=== PATIENT | female | born 2000 | race Caucasian/White ===

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

== ENCOUNTER → 2021-01-06 13:41 | Outpatient (CLI) | payer MEDICAID, SELFPAY ==
[2020-12-28 11:52] VITALS: BMI 31.6
[2021-01-09 09:36] LABS: AFP MoM Value 1.44 (.); AFP Value-EIA 39.5 ng/mL (.); Comment Report (.); DIA MoM Value 1.33 (.); DIA Value-EIA 208.83 pg/mL (.); DSR (By Age) 1158 (.); DSR (Second Trimester) 10000 (.); Gestat. Age Based On As provided (.); Insulin Dep Diabetes No (.); Maternal Age At EDD 20.4 yr (.)
== END ==
PROVIDERS: PCP Pediatrics; Visit Provider Obstetrics & Gynecology
DX: Z34.82 Encounter for supervision of other normal pregnancy, second trimester (principal)
CPT/HCPCS: 36415; 82105; 82677; 84702

== ENCOUNTER → 2021-01-24 14:46 | Outpatient (CLI) | payer MEDICAID, SELFPAY ==
[2020-12-28 11:52] VITALS: BMI 31.6
== END ==
PROVIDERS: PCP Pediatrics; Visit Provider Obstetrics & Gynecology
DX: Z34.82 Encounter for supervision of other normal pregnancy, second trimester (principal)
CPT/HCPCS: 36415

== ENCOUNTER → 2021-03-13 13:04 | Outpatient (CLI) | payer MEDICAID, SELFPAY ==
[2021-03-13 14:35] LABS: Hematocrit 38.8 % (37-47); Hemoglobin 12.4 g/dL (12.0-15.0); Mean Corpuscular Volume 100.3 fL (81-99); Mean Platelet Vol. 10.2 fl (6.2-12.0); Platelet Count 368 K/mm3 (150-450); RBC Distribution Width CV 14.9 % (11.6-14.6); Red Blood Count 3.87 M/mm3 (4.2-5.4); White Blood Count 17.9 K/mm3 (4.4-11.0)
[2021-03-13 14:50] LABS: Glucose Challenge Gest 1H 50g 96 mg/dL (70-140)
== END ==
PROVIDERS: PCP Pediatrics; Visit Provider Obstetrics & Gynecology
DX: Z34.82 Encounter for supervision of other normal pregnancy, second trimester (principal)
CPT/HCPCS: 36415; 82950; 85027

== ENCOUNTER 2021-04-20 15:05 | Outpatient (CLI) | payer MEDICAID, SELFPAY ==
[2021-04-20 15:33] VITALS: BP 113/73; PULSE 95
[2021-04-20 15:34] VITALS: TEMP 37.5; O2SAT 99
[2021-04-20 15:46] VITALS: BMI 33.6
[2021-04-20 16:13] LABS: Color, Urine Yellow (Yellow); Glucose, Dipstick Normal (Normal); Ketone-Dipstick Negative (Negative); Leukocyte Esterase-Dipstick 100 /ul (Negative); Nitrite-Dipstick Negative (Negative); Occult Blood-Urine Negative /ul (Negative); Protein-Dipstick 30 mg/dl (Negative); Urine Bilirubin Dipstick Negative (Negative); Urine Clarity Clear (Clear); Urine Urobilinogen 1 mg/dl (Normal); Urine pH 6.5 (5.0 - 8.0)
[2021-04-20 16:23] LABS: ROM Internal Control Test YES-OK TO RESULT pt. (Internal QC); ROM Patient Test Negative (Negative)
--- NOTE | 2021-04-20 21:25 | OB.TRI.NOTE ---
HPI - General HPI Narrative MONA ALSTON, is a 21 F who presents leakage of fluid PFSH PFSH Home Medications [id number] acid [PreNata] 1 tab PO DAILY 12/19/20 [History Last Taken Unknown] Allergy/AdvReac Type Severity Reaction Status Date / Time No Known Allergies Allergy Verified 04/20/21 15:49 Social History Smoking Status: Never smoker NST FHR Rate Baby A Baseline: 120 Variability:: Moderate Accelerations:: 10 x 10 Decelerations:: None NST Reactive:: Yes Uterine Activity:: Quiet Assessment & Plan (1) : PLAN: Patient arrived with leakage of fluid. ROM negative. Ruled out rupture. Okay to discharge home and follow-up at scheduled appointment
== END 2021-04-20 16:45 | disposition home or self-care (01) ==
LOC: WPOUT 15:16 → WP 15:16
PROVIDERS: PCP Pediatrics; Visit Provider Obstetrics & Gynecology
DX: Z03.71 Encounter for suspected problem with amniotic cavity and membrane ruled out (principal)
CPT/HCPCS: 59025; 59050; 81002; 84112; 87086; 87088; 99218; G0378

== ENCOUNTER 2021-05-13 09:50 | Outpatient (CLI) | payer MEDICAID, SELFPAY ==
[2021-05-13 10:00] VITALS: BMI 35.0
[2021-05-13 10:06] VITALS: TEMP 36.7
[2021-05-13 10:07] VITALS: BP 114/72; PULSE 97
[2021-05-13 10:32] LABS: ROM Internal Control Test YES-OK TO RESULT pt. (Internal QC); ROM Patient Test Negative (Negative)
[2021-05-13 11:38] LABS: Color, Urine Yellow (Yellow); Glucose, Dipstick Normal (Normal); Ketone-Dipstick 15 mg/dl (Negative); Leukocyte Esterase-Dipstick 500 /ul (Negative); Nitrite-Dipstick Negative (Negative); Occult Blood-Urine Negative /ul (Negative); Protein-Dipstick 15 mg/dl (Negative); Urine Bilirubin Dipstick Negative (Negative); Urine Clarity Sl. Cloudy (Clear); Urine Urobilinogen Normal (Normal)
--- NOTE | 2021-05-13 17:00 | OB.TRI.NOTE ---
HPI - General HPI Narrative MONA ALSTON, is a 21 F who presents with c/o leaking of fluid at 33 4/7 wga (ROSALINA 06/27/2021). PFSH PFSH Home Medications [id number] acid [PreNata] 1 tab PO DAILY 12/19/20 [History Last Taken Unknown] Allergy/AdvReac Type Severity Reaction Status Date / Time No Known Allergies Allergy Verified 05/13/21 10:18 Social History Smoking Status: Never smoker NST FHR Rate Baby A Baseline: 140 Variability:: Moderate Accelerations:: 15 x 15 Decelerations:: None NST Reactive:: Yes FHR Category:: Category I Uterine Activity:: 07/31 Assessment & Plan (1) : QUALIFIERS: Weeks of gestation: 33 weeks Qualified Code(s): Z3A.33 - 33 weeks gestation of PLAN: False labor < 37wga SVE /-2 per RN exam ROM plus neg status reassuring d/c home
== END 2021-05-13 11:25 | disposition home or self-care (01) ==
LOC: WPOUT 09:51 → WP 09:52
PROVIDERS: PCP Pediatrics; Visit Provider Obstetrics & Gynecology
DX: O47.03 False labor before 37 completed weeks of gestation, third trimester (principal); Z3A.33 33 weeks gestation of pregnancy
CPT/HCPCS: 59025; 59050; 81002; 84112; 87086; 87088; 99218; G0378

== ENCOUNTER 2021-05-17 01:45 | Outpatient (CLI) | payer MEDICAID, SELFPAY ==
[2021-05-17 01:52] VITALS: BMI 35.7
[2021-05-17 02:01] VITALS: BP 109/65; PULSE 116; O2SAT 97
[2021-05-17 02:19] VITALS: TEMP 37.4
[2021-05-17 02:21] VITALS: PULSE 102
[2021-05-17 02:22] LABS: Color, Urine Straw (Yellow); Glucose, Dipstick Normal (Normal); Ketone-Dipstick Negative (Negative); Leukocyte Esterase-Dipstick 500 /ul (Negative); Mucous, Urine 0 SEEN /hpf (<or=2+); Nitrite-Dipstick Negative (Negative); Occult Blood-Urine Negative /ul (Negative); Protein-Dipstick Negative (Negative); Red Blood Cells-Urine 0 SEEN /hpf (0-5); Urine Bilirubin Dipstick Negative (Negative); Urine Clarity Clear (Clear); Urine Urobilinogen Normal (Normal)
[2021-05-17 02:31] LABS: Bacteria 1+ /hpf (None Seen); Squamous Epithelial Cells - UA 0-5 SEEN /hpf (5-10); White Blood Cells 5-10 SEEN /hpf (0-5)
[2021-05-17 04:05] VITALS: BP 101/72; PULSE 81; TEMP 36.6
--- NOTE | 2021-05-17 09:00 | OB.TRI.NOTE ---
HPI - General HPI Narrative MONA ALSTON, is a 21 F who presents at 34 1/7 weeks gestation (ROSALINA 06/27/20) with c/o contractions PFSH PFSH Home Medications [id number] acid [PreNata] 1 tab PO DAILY 12/19/20 [History Last Taken 05/15/21 08:00] Allergy/AdvReac Type Severity Reaction Status Date / Time No Known Allergies Allergy Verified 05/17/21 01:58 Social History Smoking Status: Never smoker NST FHR Rate Baby A Baseline: 135 Variability:: Moderate Accelerations:: 15 x 15 Decelerations:: None NST Reactive:: Yes FHR Category:: Category I Uterine Activity:: 10/28 Assessment & Plan (1) : QUALIFIERS: Weeks of gestation: 34 weeks Qualified Code(s): Z3A.34 - 34 weeks gestation of PLAN: False labor Contractions resolved with observation and SVE unchanged U/A suggests possible UTI, however, pt on abx for dental indication, however, cannot recall name, dose. Will f/u Ucx, pt to continue antibiotics as ordered by dentist in interim.
== END 2021-05-17 04:40 | disposition home or self-care (01) ==
LOC: WPOUT 01:49 → WP 01:49
PROVIDERS: PCP Pediatrics; Visit Provider Obstetrics & Gynecology
DX: O47.03 False labor before 37 completed weeks of gestation, third trimester (principal); Z3A.34 34 weeks gestation of pregnancy
CPT/HCPCS: 59025; 59050; 81001; 87086; 87088; 99218; G0378

== ENCOUNTER → 2021-06-06 | Outpatient (CLI) | payer MEDICAID, SELFPAY | END | disposition home or self-care (01) | LOC: LABSPEC 10:54 | PROVIDERS: PCP Pediatrics; Visit Provider Obstetrics & Gynecology | DX: Z36.85 Encounter for antenatal screening for Streptococcus B (principal) | CPT/HCPCS: 87081 ==

== ENCOUNTER 2021-06-11 00:10 | Outpatient (CLI) | payer MEDICAID, SELFPAY ==
[2021-06-11 00:44] VITALS: BP 127/87; PULSE 108
[2021-06-11 01:32] VITALS: BMI 35.0
[2021-06-11 02:39] VITALS: BP 118/86; PULSE 88; TEMP 36.1; O2SAT 97
[2021-06-11 04:13] VITALS: BP 121/74; PULSE 95; TEMP 36.1; O2SAT 97
[2021-06-11] MEDS: Lactated Ringers 1,000 ML 250 ML IV (06:05)
[2021-06-11] MEDS: Acetaminophen 500 MG Tablet 1000 MG PO (06:17)
--- NOTE | 2021-06-11 06:53 | PCM.PN.BLA ---
Progress Note 21-year-old G3, P0 at 37/5 weeks presenting with contractions. Patient was monitored overnight. She was 4 cm in the office and is now 4 to 5 cm. Patient given IV fluids and Tylenol for contraction discomfort. Contractions have decreased in intensity and spaced out during stay. heart rate: 120s/mod moira/+accel/no decel [place]: irregular Assessment/plan: 21-year-old G3, P0 at 37/5 weeks not in labor. Labor precautions reviewed. Discharge home.
[2021-06-11 07:49] VITALS: BP 120/79; PULSE 84; TEMP 36.6
== END 2021-06-11 07:59 | disposition home or self-care (01) ==
LOC: WPOUT 00:17 → WP 00:17
PROVIDERS: PCP Pediatrics; Visit Provider Student in an Organized Health Care Education/Training Program
DX: O62.9 Abnormality of forces of labor, unspecified (principal); Z3A.37 37 weeks gestation of pregnancy
CPT/HCPCS: 96360; 96361; 59025; 59050; 99218; J7120; G0378

== ENCOUNTER 2021-06-12 17:25 | Outpatient (CLI) | payer MEDICAID, SELFPAY ==
[2021-06-12 17:47] VITALS: BMI 35.2
[2021-06-12 17:57] VITALS: BP 128/74; PULSE 93; TEMP 36.4; O2SAT 97
[2021-06-12 19:50] VITALS: TEMP 36.7
[2021-06-12 19:51] VITALS: BP 134/81; PULSE 108
--- NOTE | 2021-06-12 21:00 | OB.TRI.NOTE ---
HPI - General HPI Narrative MONA ALSTON, is a 21 F who presents with contractions PFSH PFS Medical History (Updated 06/11/21 @ 02:26 by Cherie Page) Anxiety Depression Psychiatric disorder Home Medications [id number] acid [PreNata] 1 tab PO DAILY 12/19/20 [History Last Taken 05/15/21 08:00] Allergy/AdvReac Type Severity Reaction Status Date / Time No Known Allergies Allergy Verified 06/11/21 02:24 Social History Smoking Status: Never smoker History Elective abortions Hx Para 0 Spontaneous abortions Hx # Term Pregnancies Ectopic pregnancies Hx # Pregnancies Multiple births # of living children Physical Exam Const alert, oriented x3, no apparent distress, average body habitus, healthy appearing and well nourished HEENT moist oral mucous membranes Head and Scalp: normocephalic and atraumatic Face and Sinus: normal facial exam Eyes PERRL Neck full ROM Resp normal respiratory effort, no retractions and no use of accessory muscles GI normal to inspection, nondistended, normoactive bowel sounds Extremity normal to inspection, full ROM and no clubbing, cyanosis or edema Psych mental status grossly normal, affect normal, speech normal and activity/motor behavior normal NST FHR Rate Baby A Baseline: 130 Variability:: Moderate Accelerations:: 15 x 15 Decelerations:: None NST Reactive:: Yes Uterine Activity:: Every 2 to 10 minutes Assessment & Plan (1) : QUALIFIERS: Weeks of gestation: 34 weeks Qualified Code(s): Z3A.34 - 34 weeks gestation of PLAN: Seen and examined. No change from baseline cervical exam in over a week. Contractions palpate minimal to mild. All reassuring. Okay to discharge home with labor precautions. Follow-up at scheduled appointments
== END 2021-06-12 21:15 | disposition home or self-care (01) ==
LOC: WPOUT 17:43 → WP 17:43
PROVIDERS: PCP Pediatrics; Visit Provider Obstetrics & Gynecology
DX: O62.9 Abnormality of forces of labor, unspecified (principal); Z3A.34 34 weeks gestation of pregnancy
CPT/HCPCS: 59025; 59050; 99218; G0378

== ENCOUNTER 2021-06-16 14:35 | Outpatient (CLI) | payer MEDICAID, SELFPAY ==
[2021-06-16 14:50] VITALS: TEMP 37.4
[2021-06-16 14:54] VITALS: BP 115/77; PULSE 88
[2021-06-16 14:56] VITALS: BMI 35.1
[2021-06-16 15:42] LABS: ROM Internal Control Test YES-OK TO RESULT pt. (Internal QC); ROM Patient Test Negative (Negative)
[2021-06-16 17:05] VITALS: TEMP 36.7
[2021-06-16 17:07] VITALS: BP 119/77; PULSE 72
--- NOTE | 2021-06-16 18:10 | PCM.PN.BLA ---
Progress Note 21-year-old G1 at 38/3 presenting with contractions. Cervix unchanged from last week at 5 cm. Recheck at 2 hours 5 cm per RN. FHR 135/mod moira/+accel/no decel [place]: irregular q5-7 A/P: G1 at 38/3 weeks with contractions, not in labor. Patient's cervix has been unchanged for over 1 week. Discharge home with labor precautions. Likely in early labor. She has an appointment on 06/19.
== END 2021-06-16 18:14 | disposition home or self-care (01) ==
LOC: WPOUT 14:42 → WP 14:43
PROVIDERS: Student in an Organized Health Care Education/Training Program; PCP Pediatrics; Visit Provider Obstetrics & Gynecology
DX: O62.9 Abnormality of forces of labor, unspecified (principal); Z3A.38 38 weeks gestation of pregnancy
CPT/HCPCS: 59025; 59050; 84112; 99218; G0378

== ENCOUNTER 2021-06-22 13:47 | Outpatient (CLI) | payer MEDICAID, SELFPAY ==
[2021-06-22 13:53] VITALS: BMI 35.3
[2021-06-22 13:58] VITALS: TEMP 36.9; O2SAT 98
[2021-06-22 13:59] VITALS: BP 114/69
[2021-06-22 14:00] VITALS: PULSE 113; O2SAT 98
--- NOTE | 2021-06-26 07:46 | OB.TRI.NOTE ---
HPI - General HPI Narrative MONA ALSTON, is a 21 F who presents to labor at 39+ weeks gestation with some contractions. PFSH PFSH Medical History (Updated 06/26/21 @ 07:[address] Amado Espinoza MD) Anxiety Depression Psychiatric disorder Trauma Home Medications [id number] acid [PreNata] 1 tab PO DAILY 12/19/20 [History Last Taken 06/24/21 20:00] Allergy/AdvReac Type Severity Reaction Status Date / Time No Known Allergies Allergy Verified 06/16/21 14:54 Social History Smoking Status: Never smoker History Elective abortions Hx Para 0 Spontaneous abortions Hx # Term Pregnancies Ectopic pregnancies Hx # Pregnancies Multiple births # of living children NST FHR Rate Baby A NST Reactive:: Yes FHR Category:: Category I Assessment & Plan (1) False labor, antepartum: PLAN: 39+ week gestation with false labor. No change in cervix after monitoring for several hours. Reactive nonstress test. Patient discharged to home with routine instructions.
== END 2021-06-22 23:59 | disposition home or self-care (01) ==
LOC: WPOUT 13:48 → WP 13:53
PROVIDERS: PCP Pediatrics; Visit Provider Obstetrics & Gynecology
DX: O47.1 False labor at or after 37 completed weeks of gestation (principal); Z3A.39 39 weeks gestation of pregnancy
CPT/HCPCS: 59025; 59050 ×2; G0378 ×2; 99218

== ENCOUNTER 2021-06-25 17:48 | Inpatient (IN) | payer MEDICAID, SELFPAY ==
[2021-06-25] VITALS (26 sets, daily range): BP systolic 108–132; BP diastolic 60–80; PULSE 75–125; TEMP 36.8–37.6; O2SAT 96–100; BMI 35.1
[2021-06-25] MEDS: Lactated Ringers 1,000 ML 50 ML IV (18:43)
[2021-06-25] MEDS: Lactated Ringers 500 ML 999 ML IV (18:45)
[2021-06-25 18:48] LABS: Absolute Neutrophil Count 10.8 X10^3/uL (2.0-7.7); Basophil# 0.03 X10^3/uL; Basophil% 0.2 % (0-1); Eosinophil# 0.03 X10^3/uL; Eosinophils% 0.2 % (0-5); Hematocrit 35.3 % (37-47); Hemoglobin 11.2 g/dL (12.0-15.0); Lymphocyte % 14.1 % (19-41); Mean Corp Hgb Conc 31.7 g/dL (32-36); Mean Corpuscular Hgb 28.1 pg (27.0-32.0); Mean Corpuscular Volume 88.7 fL (81-99); Mean Platelet Vol. 10.4 fl (6.2-12.0); Monocyte# 1.25 X10^3/uL; Monocyte% 8.8 % (0-10); NRBC Flagged by Analyzer 0 % (0-5); Neutrophil % 76.3 % (47-70); Platelet Count 381 K/mm3 (150-450); RBC Distribution Width CV 13.1 % (11.6-14.6); RBC Distribution Width SD 42.5 fl (35.1-43.9); Red Blood Count 3.98 M/mm3 (4.2-5.4); White Blood Count 14.2 K/mm3 (4.4-11.0)
[2021-06-25] MEDS: fentaNYL-bupivacaine (epidural) 100 ML BAG EPIDURAL ×2 (19:22→23:29)
--- NOTE | 2021-06-25 22:29 | NURSING ---
Pt complains of burning and feeling like there's a UTI with urinary catheter in place. RN notes urine clear and yellow with no signs of infection. RN removed catheter at 2226 and pt reported feeling immediate relief after removal of urinary catheter. Pt now continues complaining of burning. RN will continue to monitor, reassess in two hours, and update provider.
[2021-06-25] MEDS: Acetaminophen 500 MG Tablet PO (22:57)
[2021-06-25] MEDS: Lactated Ringers 1,000 ML 200 ML IV (23:30)
[2021-06-26] VITALS (25 sets, daily range): BP systolic 93–121; BP diastolic 46–72; PULSE 71–99; RESP 14–18; TEMP 36.2–37.9; O2SAT 96–99
--- NOTE | 2021-06-26 02:26 | NURSING ---
Addendum entered by Jaylene Marte 06/26/21 02:28: sterile field maintained during procedure by this RN Original Note: pt bladder emptied from 0200 to 0202 via straight cath, 450mL of clear, yellow urinary output, pt tolerated procedure well
[2021-06-26] MEDS: Ondansetron 4 MG/2 ML Vial IV (03:30)
[2021-06-26] MEDS: Mag Hydrox/Al Hydrox/Simeth 30 ML UDC PO (03:35)
[2021-06-26] MEDS: Lactated Ringers 1,000 ML 200 ML IV (04:26)
[2021-06-26] MEDS: fentaNYL-bupivacaine (epidural) 100 ML BAG EPIDURAL (05:05)
[2021-06-26 06:35] LABS: Syphilis Antibodies Non-reactive
[2021-06-26] MEDS: Oxytocin 30 units/NS 500 ml 30 UNITS/500 ML IV.SOLN 334 UNITS IV (07:19)
--- NOTE | 2021-06-26 07:33 | HP.PCM_ITS ---
History and Physical Date of Admission: 06/26/21 ACOG ANTEPARTUM RECORD - HISTORY AND PHYSICAL (06/26/2021) Name: MONA ALSTON History of this : This is a 21 year old [id number] presents at 39 wks + 6 days gestation in active labor. OB Physician: ANNIKA MARIE MD 's Physician: UNDECIDED ...................................................................... : [birth year] Age: 21 Address: [address] [place] [address] Phone: (h) [phone] ([phone] Insurance Carrier: [employer] CLAIMS DEPT [id number] Emergency Contact: AMA SAWANT [phone] ...................................................................... Final ROSALINA: 06/27/21 By Ultrasound: 9 weeks 6 days PARITY: (G-Total Pregnancies P-Fullterm,Premature,Induced AB,Spont AB, Ectopics, Multiple,Living) ROSALINA CONFIRMATION: By LMP: 09/20/20 Final ROSALINA: 06/27/21 OB PROBLEM LIST: Anx/Depression/Psychosis/PTSD/Bipolar Previously on Prozac and seroquel now on no meds , enc WIC program classes Family hx of Asperger's FOB >50yo Hx of cutting Pt's uncle/aunt/cousin with Factor V Pt work up for APLS and Factor V negative Quad screen negative Two brother's with Down Syndrome Unsure about an epidural, office childbirth class encouraged UTI history ALLERGIES: No Known Drug Allergies MEDICATIONS: doxylamine succinate 25 mg tablet 1 PO QD 28 mg iron-800 mcg tablet daily promethazine 12.5 mg tablet 1 PO every four to six hours PRN Nausea pyridoxine (vitamin B6) 25 mg tablet 1 PO QD Zofran 4 mg tablet One tablet by mouth every 8 hrs as needed for nausea SOCIAL HISTORY: Smoking - Never Alcohol Use - denies drinking Diet - no special diet Lifestyle - single Exercise - minimal Employer - unemployed 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 Drug Use - denies use of street drugs Sexual Activity - single sexual partner Residence - lives with Place of - [place], [place] Spouse-Sig Other Name - Ama Sawant Spouse-Sig Other Occupation - [employer] Spouse-Sig Other Phone No - [phone] PRIOR DELIVERY HISTORY DEL DATE GEST LAB WT LB WT OZ TYPE ANES LABOR TX 01 May 10 12 0 0 0 Sab General No 05 Jose Maria 21 8 0 0 0 Sab None No ANTEPARTUM FLOW CHART VISIT GE RTC FU F F HI U U DATE WK MD WKS HT PN HR M SS BP ED WT HI GL D EF ST __ ____ ___ __ __ ___ __ __ __ ___ __ __ __ ___ __ May JMW 1 38 V + + 110/74 sl 198 - - 4+ 80 -1 17 May JM 1 37 V + + 104/76 0 194 1+ - 4 09 May JM 1 35 V + + O 128/80 0 194 tr - 3 03 May JM 1 35 V + + 130/82 0 195 tr - 18 Apr JM 2 32 V on + 100/74 0 195 tr - 02 May 20 JM 2 30 - + + 98/70 0 188 tr - Apr 17 JM 2 28 - + + 100/70 0 186 tr - 23 Mar 14 JM 4 24 - + + 114/78 0 183 - - 24 Feb 07 JM 4 20 - + + 102/68 0 177 tr ne Feb 05 JM 2 18 - + + 108/60 0 173 tr - 07 Dec 31 JM 4 13 - + 110/76 0 179 tr - 10 Nov 27 JM 4 9 - on 100/68 0 188 1+ ne ANTEPARTUM NOTE(S): Jun 19 2021: Questionable Fluid Leakage, Good FM, nit neg Jun 06 2021: GBS and LARC May 29 2021: see note May 23 2021: see note May 08 2021: doing well Apr 22 2021: no concerns expressed Apr 10 2021: doing well Mar 13 2021: u/s today Feb 11 2021: US today, glucola given for next apt. Jan 24 2021: Dec 25 2020: NOB visit completed Nov 28 2020: US today COMPREHENSIVE ANTEPARTUM NOTE(S): Jun 09 2021: H taken to OB. tkg Jun 06 2021: 37wk, GBS collected today. CE 3-4cm. JM May 29 2021: Mnoa is here today for PNV she is 35w6d. No edema. Positive movement. She believes she may be leaking fluid or urine, she is unsure. She also C/O pressure. BR May 29 2021: 35wk, cramping and leaking. SSE negtiave, ferning negative. CE 3 cm, unchanged from previous. GBS next visit. May 23 2021: Mona states she went to on Wednesday05/17/21 for contractions and back pain. She states Dr. Ayana Laboy said she may have a UTI but she was never told those results. Mona also states she was told by Dr. Ayana Laboy that she was 3cm dilated. She also C/O of increase of heartburn.Mona does continue to have irregular contractions and back pain. BR May 23 2021: 35wk, having contractions. Cervix 2-3 cm, unchanges from triage visit 1 week ago. GBS next visit. May 08 2021: Reviewed FM, PTL, SROM. Encouraged Tdap and Influenza today. LMT May 08 2021: 32wks, no complaints. JM Apr 22 2021: Mona is here for a PNV at 18/10. Good FM. No edema present. Denies concerns/ questions at this time. MK Apr 22 2021: 30wk, no complaints. JM Apr 10 2021: Mona is here for visit. Reviewed FM, PROM, PTL. Encouraged Influenza, Tdap vaccines. LMT Apr 10 2021: 28wks, 1hr GTT wnl. JM Mar 13 2021: 24wk, repeat u/s today for limited heart views now with full heart views wnl. 1hr GTT today. Still waiting on gender reveal with BB gun and balloon. Feb 11 2021: Mona is here with SO following US for PNV. 08/10. Glucola given with instructions for next apt. Having good FM. Feeling well and voices no concerns. No edema noted. Urine tr/neg. LSS Feb 11 2021: 20 weeks, anatomy ultrasound with limited cardiac in renal views. We will repeat ultrasound in 4 weeks. Otherwise within normal limits. For gender reveal via pickup truck, giant balloon, and BB gun. For 1 hour GTT next visit. Jan 24 2021: Yaz is her for 18 wks +0 day PNV. Reports she is doing well. She has some morning nausea, after eating crackers the nausea goes away. She continues to taking pre matt vitamins. Reports getting QURESHI a lot and takes 2 Tylenol which seen to help most of the time. States she is staying well hydrated. Reports yesterday she got a cat bite on left index finger and swelled up. Express interest in getti Jan 24 2021: 18 weeks, quad screen negative. Anatomy ultrasound next visit. Dec 25 2020: 13wk, still stable on no psych meds. For Quad and carrier at 15wks, ordered. Dec 25 2020: Mona is here for her NOB visit. She is a 20 year old A2 with an ROSALINA of 06/27/2021, current GA is 13 w 5 d. Her mother accompanies her today. She is and resides with her , Ama. She states that she has good support form Ama, and their families. Mona is excited about the . She states that she feels daily N/V, and takes Vitamin B6 and Zofran as prescribed; she s Nov 28 2020: Mona is here with SO following US for PNV. Having nausea in w aves through out day. Does vomit about twice a day. Discussed saltine at bedside and small frequent meals throughout day. Eating healthy and increase water intake. Excited about . Urine 1+/neg. LSS Nov 28 2020: 9wk, u/s today confirmed FINAL ROSALINA: 06/27/21 by LMP. PNP wnl. A pos. Pt with Anx/Depression/Psychosis/PTSD/Bipolar perviously on Prozac and Seroquel now on no meds stable. FOB >50yo. Pt desires Quad and carrier screening, will get at 15wks. ROSA REVIEW OF SYSTEMS: GENERAL - Denies fever, or chills SKIN - Denies rash, new skin lesions, or change in moles EYES - Denies blurred vision, or change in visual acuity EARS - Denies ear pain, or difficulty hearing NOSE - Denies nasal congestion, discharge, or bleeding MOUTH - Denies sore throat, or difficulty swallowing NECK - Denies pain or swelling RESPIRATORY - Denies shortness of breath, cough, wheezing CARDIOVASCULAR - Denies palpitations, chest pain, orthopnea, PND, peripheral edema, syncope or claudication GASTROINTESTINAL - Denies nausea, vomiting, diarrhea, constipation, Denies abdominal pain, melena and or bright red blood GENITOURINARY - Denies dysuria, frequency of urination, urgency, or hesitancy MUSCULOSKELETAL - Denies joint or muscle pain, or back pain NEUROLOGICAL - Denies localized numbness, weakness, or tingling PSYCHIATRIC - Denies depression, anxiety, substance abuse or suicide attempts ENDOCRINE - Denies heat or cold intolerance, weight loss or gain, increasing thirst HEMATO-IMMUNOLOGIC - Denies easy bruising, bleeding, oral ulcerations or recurrent infections GENETICS SCREENING: Age 35+ years: No Thalassemia: No Neural Tube Defect: No Down Syndrome: Yes, Brothers SETH-SACHS: No Sickle Cell Disease: No Hemophilia: No Musc. Dystrophy: No Cystic Fibrosis: No-declines screening Vasu Chorea: No Mental Retardation: No Fragile X: No Other genetic: No Other defects: No SABs/still births: No Drugs since LMP: No Comments: Hx of autism (brothers), Asperger's Syndrome INFECTION HISTORY: High risk AIDS: No High risk Hepatitis: No Exposed to TB: No Exposed to Herpes: No Rash/viral illness since LMP: No History of STD: No MENSTRUAL HISTORY: *Menses Amount/Duration: 3-4 DAYSMenses Regularity: RegularMenarche (Age Onset): 10* PAST SUMMARY: PARITY: 1. Total Pregnancies............ 3 2. Full Term Pregnancies........ 0 3. Premature.................... 0 4. Abortions - Induced.......... 0 5. Abortions - Spontaneous...... 2 6. Ectopics..................... 0 7. Multiple Births.............. 0 8. Living Children.............. 0 PAST #1: Date of :.................. 04/21/20 Gestation Weeks:................ 12 Length of labor(hours):......... 0 Sex:............................ Weight-lbs:............... 0 Weight-oz:................ 0 Type of Delivery:............... Sab Type of Anesthesia:............. General Place of Delivery:.............. [place] Treatment of Labor?:.... No Comment: PAST #2: Date of :.................. 06/25/20 Gestation Weeks:................ 8 Length of labor(hours):......... 0 Sex:............................ Weight-lbs:............... 0 Weight-oz:................ 0 Type of Delivery:............... Sab Type of Anesthesia:............. None Place of Delivery:.............. none Treatment of Labor?:.... No Comment: PHYSICAL EXAMINATION General Appearence: 21 yo female in no acute distress Vital Signs: AF, VSS Heart: RRR without rubs or gallops Lungs: CTA x 2 Breasts: deferred Abdomen: gravid Pelvis: Cervix: 6/80 gross rupture membranes Presentation: cephalic Station: -2 Fetus: Size: AGA Movement: present Heart: present LAB TEST(S) ORDERED SINCE:09/30/20 06/16/2021 (ROM) RUPTURE OF MEMBRANES 06/09/2021 RULE OUT BETA STREP (GRP. B) 05/18/2021 URINE CULTURE 05/17/2021 URINALYSIS, COMPLETE 05/14/2021 URINE CULTURE 05/13/2021 URINALYSIS, ROUTINE (DIPSTICK) 05/13/2021 (ROM) RUPTURE OF MEMBRANES 04/22/2021 URINE CULTURE 04/20/2021 URINALYSIS, ROUTINE (DIPSTICK) 04/20/2021 (ROM) RUPTURE OF MEMBRANES 03/13/2021 GLUCOSE CHALLENGE GEST 1H 50G 03/13/2021 CBC-COMPLETE BLOOD CNT NO DIFF 01/30/2021 MISCELLANEOUS LAB PROCEDURE 01/15/2021 MISCELLANEOUS LAB PROCEDURE 01/09/2021 AFP TETRA QUAD SCREEN 11/18/2020 CHLAMYDIA/GC LAUREN APTIMA 11/15/2020 URINE CULTURE 11/14/2020 RUBELLA IGG 11/14/2020 T AND S-NO CHARGE W/PNP 11/14/2020 L509.8000 11/14/2020 HIV - [facility] 11/14/2020 HEPATITIS C ANTIBODY 11/14/2020 HEPATITIS B SURFACE ANTIGEN 11/14/2020 CBC W/DIFF, AUTOMATED 06/26/2021 L509.8000 06/25/2021 TYPE AND SCREEN 06/25/2021 COVID 19 AG RAPID (RN COLLECT) 06/25/2021 CBC W/DIFF, AUTOMATED == ==== Order Observation Description Value Ref_Range A* Site == ==== CBC W/DIFF, AUT NOTE GONZALEZ CBC W/DIFF, AUT WBC 14.2 K/mm3 4.4-11.0 H ML CBC W/DIFF, AUT RBC 3.98 M/mm3 4.2-5.4 L ML CBC W/DIFF, AUT HGB 11.2 g/dL 12.0-15.0 L ML CBC W/DIFF, AUT HCT 35.3 37-47 L ML CBC W/DIFF, AUT MCV 88.7 fL 81-99 ML CBC W/DIFF, AUT MCH 28.1 pg 27.0-32.0 ML CBC W/DIFF, AUT MCHC 31.7 g/dL 32-36 L ML CBC W/DIFF, AUT RDW CV 13.1 11.6-14.6 ML CBC W/DIFF, AUT RDW SD 42.5 fl 35.1-43.9 ML CBC W/DIFF, AUT PLT 381 K/mm3 150-450 ML CBC W/DIFF, AUT MPV 10.4 fl 6.2-12.0 ML CBC W/DIFF, AUT NEUT% 76.3 47-70 H ML CBC W/DIFF, AUT LY% 14.1 19-41 L ML CBC W/DIFF, AUT MONO% 8.8 0-10 ML CBC W/DIFF, AUT EO% 0.2 0-5 ML CBC W/DIFF, AUT BASO% 0.2 0-1 ML CBC W/DIFF, AUT IG% 0.400 0.0-0.9 ML IG% - Immature Granulocytes (promyelocytes, myelocytes and metamyelocytes) > 1% indicates that a LEFT SHIFT is Present. CBC W/DIFF, AUT ABSOLUTE NEUT 10.8 X10 3/uL 2.0-7.7 H ML CBC W/DIFF, AUT ABSOLUTE LYMPH 2.00 X10 3/uL 0.83-4.51 ML CBC W/DIFF, AUT NUCLEATED RBC 0 0-5 ML L509.8000 NOTE GONZALEZ L509.8000 SYPHILIS ABS Non-reactive ML Labor [facility]~[address] [place], [address]~ TYPE AND SCRE AB SCREEN GEL NEGATIVE ML COVID 19 AG RAP NOTE GONZALEZ (ROM) RUPTURE O NOTE GONZALEZ (ROM) RUPTURE O ROM Negative Negative ML Amniotic fluid not present indicates No Rupture of Membranes at time of specimen collection. RULE OUT BETA S NOTE GONZALEZ URINE CULTURE NOTE GONZALEZ URINALYSIS, COM NOTE GONZALEZ URINALYSIS, COM WBC 5-10 SEEN /hpf 0-5 ML URINALYSIS, COM RBC 0 SEEN /hpf 0-5 ML URINALYSIS, COM EPI,SQUAMOUS 0-5 SEEN /hpf 5-10 ML URINALYSIS, COM BACTERIA 1+ /hpf None Seen ML URINALYSIS, COM MUCUS 0 SEEN /hpf <or=2+ ML URINE CULTURE NOTE GONZALEZ URINALYSIS, ROU NOTE GONZALEZ URINALYSIS, ROU COLOR Yellow Yellow ML URINALYSIS, ROU URINE CLARITY Sl. Cloudy Clear ML URINALYSIS, ROU GLUCOSE, UR Normal mg/dl Normal ML URINALYSIS, ROU BILIRUBIN URINE Negative mg/dL Negative ML URINALYSIS, ROU KETONE UR 15 mg/dl Negative A ML URINALYSIS, ROU SP.GR. DIPSTX 1.020 1.002-1.030 ML URINALYSIS, ROU PH UR 6.0 5.0 - 8.0 ML URINALYSIS, ROU PROT DIPSTX 15 mg/dl Negative A ML URINALYSIS, ROU UROBILI Normal mg/dl Normal ML URINALYSIS, ROU NITRITE Negative Negative ML URINALYSIS, ROU OCCULT BLOOD-UR Negative /ul Negative ML URINALYSIS, ROU LEUK ESTERASE 500 /ul Negative A ML (ROM) RUPTURE O NOTE GONZALEZ (ROM) RUPTURE O ROM Negative Negative ML Amniotic fluid not present indicates No Rupture of Membranes at time of specimen collection. URINE CULTURE NOTE GONZALEZ URINALYSIS, ROU NOTE GONZALEZ URINALYSIS, ROU COLOR Yellow Yellow ML URINALYSIS, ROU URINE CLARITY Clear Clear ML URINALYSIS, ROU GLUCOSE, UR Normal mg/dl Normal ML URINALYSIS, ROU BILIRUBIN URINE Negative mg/dL Negative ML URINALYSIS, ROU KETONE UR Negative mg/dl Negative ML URINALYSIS, ROU SP.GR. DIPSTX 1.020 1.002-1.030 ML URINALYSIS, ROU PH UR 6.5 5.0 - 8.0 ML URINALYSIS, ROU PROT DIPSTX 30 mg/dl Negative A ML URINALYSIS, ROU UROBILI 1 mg/dl Normal A ML URINALYSIS, ROU NITRITE Negative Negative ML URINALYSIS, ROU OCCULT BLOOD-UR Negative /ul Negative ML URINALYSIS, ROU LEUK ESTERASE 100 /ul Negative A ML (ROM) RUPTURE O NOTE GONZALEZ (ROM) RUPTURE O ROM Negative Negative ML Amniotic fluid not present indicates No Rupture of Membranes at time of specimen collection. GLUCOSE CHALLEN NOTE GONZALEZ GLUCOSE CHALLEN GLU GEST 50G 1H 96 mg/dL 70-140 ML CBC-COMPLETE BL NOTE GONZALEZ CBC-COMPLETE BL WBC 17.9 K/mm3 4.4-11.0 H ML CBC-COMPLETE BL RBC 3.87 M/mm3 4.2-5.4 L ML CBC-COMPLETE BL HGB 12.4 g/dL 12.0-15.0 ML CBC-COMPLETE BL HCT 38.8 37-47 ML CBC-COMPLETE BL MCV 100.3 fL 81-99 H ML CBC-COMPLETE BL MCH 32.0 pg 27.0-32.0 ML CBC-COMPLETE BL MCHC 32.0 g/dL 32-36 ML CBC-COMPLETE BL RDW CV 14.9 11.6-14.6 H ML CBC-COMPLETE BL RDW SD 55.0 fl 35.1-43.9 H ML CBC-COMPLETE BL PLT 368 K/mm3 150-450 ML CBC-COMPLETE BL MPV 10.2 fl 6.2-12.0 ML MISCELLANEOUS L NOTE GONZALEZ MISCELLANEOUS L MISC LAB TEST ML TEST RESULT LIMITS Thrombotic Risk Acquired Com-I Dilute Prothrombin Time(dPT) 33.8 sec 0.0-55.0 dPT Confirm Ratio 1.27 Ratio 0.00-1.40 Prothrombin Antibodies, IgG 5 G units 0-20 Anticardiolipin Ab,IgG,Qn <9 GPL U/mL 0-14 Negative: <15 Indeterminate: 15 - 20 Low-Med Positive: >20 - 80 High Positive: >80 Anticardiolipin Ab,IgM,Qn 9 MPL U/mL 0-12 Negative: <13 Indeterminate: 13 - 20 Low-Med Positive: >20 - 80 High Positive: >80 Anticardiolipin Ab,IgA,Qn <9 APL U/mL 0-11 Negative: <12 Indeterminate: 12 - 20 Low-Med Positive: >20 - 80 High Positive: >80 Beta-2 Glycoprotein I Ab, IgG <9 GPI IgG units 0-20 Please Note: The reference interval reflects a 3SD or 99th percentile interval, which is thought to represent a potentially clinically significant result in accordance with the International Consensus Statement on the classification criteria for definitive antiphospholipid syndrome (APS). J Thromb Haem 2006;4:295-306. Beta-2 Glycoprotein I Ab, IgA <9 GPI IgA units 0-25 Please Note: The reference interval reflects a 3SD or 99th percentile interval, which is thought to represent a potentially clinically significant result in accordance with the International Consensus Statement on the classification criteria for definitive antiphospholipid syndrome (APS). J Thromb Haem 2006;4:295-306. Beta-2 Glycoprotein I Ab, IgM <9 GPI IgM units 0-32 Please Note: The reference interval reflects a 3SD or 99th percentile interval, which is thought to represent a potentially clinically significant result in accordance with the International Consensus Statement on the classification criteria for definitive antiphospholipid syndrome (APS). J Thromb Haem 2006;4:295-306. Antiphosphatidylserine IgM <22 MPS IgM Please note reference interval change Antiphosphatidylserine IgA 1 APS IgA 0-20 Antiphosphatidylserine IgG 1 GPS IgG 0-11 Lupus Anticoagulant Reflex PTT-LA 29.4 sec 0.0-51.9 dRVVT 33.7 sec 0.0-47.0 Lupus Reflex Interpretation Comment: No lupus anticoagulant was detected. TESTING PERFORMED AT [facility]. ORIGINAL REPORT ON FILE IN LAB CONTAINS ADDITIONAL TEST SITE INFORMATION. MISCELLANEOUS L NOTE GONZALEZ MISCELLANEOUS L MISC LAB TEST ML Scanned image report available in EMR AFP TETRA QUAD NOTE GONZALEZ AFP TETRA QUAD TEST RESULTS: *Screen Negative* . [facility] AFP TETRA QUAD GESTATIONAL AGE 15.0 WEEKS . [facility] AFP TETRA QUAD GEST AGE FROM As provided . [facility] AFP TETRA QUAD MATRNL [age]ROSALINA [age] . [facility] AFP TETRA QUAD RACE Other . [facility] AFP TETRA QUAD WEIGHT 174 lbs . [facility] AFP TETRA QUAD INS DEP DIABETE No . [facility] AFP TETRA QUAD MULT GESTATION No . [facility] AFP TETRA QUAD AFP VALUE-EIA 39.5 ng/mL . [facility] AFP TETRA QUAD AFP MOM VALUE 1.44 . [facility] AFP TETRA QUAD HCG VALUE 35023 mIU/mL . [facility] AFP TETRA QUAD HCG MOM 1.60 . [facility] AFP TETRA QUAD UE3 VALUE 1.15 ng/mL . [facility] AFP TETRA QUAD UE3 MOM 1.57 . [facility] AFP TETRA QUAD CHUCK VALUE-EIA 208.83 pg/mL . [facility] AFP TETRA QUAD CHUCK MOM VALUE 1.33 . [facility] AFP TETRA QUAD OSBR RISK 1 IN 3220 . [facility] AFP TETRA QUAD DSR 2ND TRI 1IN 16101 . [facility] AFP TETRA QUAD DSR (BY AGE)1IN 1158 . [facility] AFP TETRA QUAD T18 RISK Not increased . [facility] AFP TETRA QUAD T18 (BY AGE) 1:4511 . [facility] AFP TETRA QUAD INTERPRETATION Comment . [facility] Interpretation: Screen Negative This result is screen negative for OSB, Down Syndrome and Trisomy 18. The AFP MoM and patient specific risks calculated are based on the gestational age and the clinical information provided. This test can identify up to 80% of open neural tube defects. Closed neural tube defects and some open defects may not be detected by this test. The combination of maternal age, AFP, hCG, uE3, and CHUCK identifies 75-80% of Down Syndrome. The combination of maternal age, AFP, hCG and uE3 identifies 60% of Trisomy 18 pregnancies. The [employer] recommends amniocentesis be offered to women age 35 and older. Recalculations are not recommended when gestational dating by LMP and ultrasound are within 10 days. URINE CULTURE NOTE GONZALEZ PN N [facility]~[address] [place], [address]~ T AND AB SCREEN GEL NEGATIVE ML HEPATITIS C ANT NOTE GONZALEZ HEPATITIS C ANT HEPATITIS C AB Non-Reactive Nonreactive ML Non Reactive: < 0.8 Equivocal: >/= 0.8 to < 1.0 Reactive: >/= 1.0 The CDC recommends that a reactive/equivocal HCV antibody result be followed up by the HCV Nucleic Acid Amplification test (807728) HEPATITIS B JENNIFER NOTE GONZALEZ HEPATITIS B JENNIFER HEP B SURF AG Non-Reactive Nonreactive ML HIV - [facility] NOTE GONZALEZ HIV - [facility] HIV Non-Reactive Nonreactive ML L509.8000 NOTE GONZALEZ L509.8000 SYPHILIS ABS Non-reactive ML RUBELLA IGG NOTE GONZALEZ RUBELLA IGG RUBELLA IGG Equiv Nonreactive ML Antibody Results Interpretation of Immune Status Non Reactive Presumed Non-Immune Equivocal Equivocal Reactive Presumed Immune CBC W/DIFF, AUT NOTE GONZALEZ CBC W/DIFF, AUT WBC 11.5 K/mm3 4.4-11.0 H ML CBC W/DIFF, AUT RBC 4.45 M/mm3 4.2-5.4 ML CBC W/DIFF, AUT HGB 13.6 g/dL 12.0-15.0 ML CBC W/DIFF, AUT HCT 42.5 37-47 ML CBC W/DIFF, AUT MCV 95.5 fL 81-99 ML CBC W/DIFF, AUT MCH 30.6 pg 27.0-32.0 ML CBC W/DIFF, AUT MCHC 32.0 g/dL 32-36 ML CBC W/DIFF, AUT RDW CV 13.8 11.6-14.6 ML CBC W/DIFF, AUT RDW SD 48.8 fl 35.1-43.9 H ML CBC W/DIFF, AUT PLT 350 K/mm3 150-450 ML CBC W/DIFF, AUT MPV 10.1 fl 6.2-12.0 ML CBC W/DIFF, AUT NEUT% 73.0 47-70 H ML CBC W/DIFF, AUT LY% 18.3 19-41 L ML CBC W/DIFF, AUT MONO% 7.6 0-10 ML CBC W/DIFF, AUT EO% 0.4 0-5 ML CBC W/DIFF, AUT BASO% 0.4 0-1 ML CBC W/DIFF, AUT IG% 0.300 0.0-0.9 ML IG% - Immature Granulocytes (promyelocytes, myelocytes and metamyelocytes) > 1% indicates that a LEFT SHIFT is Present. CBC W/DIFF, AUT ABSOLUTE NEUT 8.4 X10 3/uL 2.0-7.7 H ML CBC W/DIFF, AUT ABSOLUTE LYMPH 2.10 X10 3/uL 0.83-4.51 ML CBC W/DIFF, AUT NUCLEATED RBC 0 0-5 ML CHLAMYDIA/GC NA NOTE GONZALEZ CHLAMYDIA/GC NA CHLAMY,NUC ACID Negative Negative [facility] CHLAMYDIA/GC NA GC BY NUC ACID Negative Negative LCI Performed at: = - [facility], [place] [id number] [employer] Ironer: Shelli Robins MD, Phone: [phone] A POSITIVE *Negative results from patients with symptom onset beyond five days should be treated as presumptive and confirmed by a molecular assay if clinically necessary. Negative results should not be used as the sole basis for treatment or for patient management. COVID 19 AG RAPID (RN COLLECT) *Positive results do not differentiate between SARS-CoV and SARS-CoV-2. If differentation of the specific SARS virus is desired an additional sample and an additional order is required. COVID 19 AG RAPID (RN COLLECT) * This test has not been FDA cleared or approved; the test has been authorized by FDA under an Emergency Use Authorization (EAU) for use by laboratories certified under CLIA that meet the requirements to perform moderate, high, or waived complexity tests. COVID 19 AG RAPID (RN COLLECT) Normal Reference Range: Negative SARS-CoV-2 (COVID 19) Negative RAPID METHOD Quidel Dorothea Analyzer SUKI Group B Beta Streptococcus is not isolated. Mixed Gram Positive Organisms Jackson Count 50,000-80,000 MIXC Mixed contaminants. Submit a new specimen if indicated. Mixed Gram Positive Organisms Jackson Count <FONT COLOR=#[id number] MIXC Mixed contaminants. Submit a new specimen if indicated. Mixed Gram Positive Organisms Jackson Count 25,000-50,000 MIXC Mixed contaminants. Submit a new specimen if indicated. Mixed Gram Positive Organisms Jackson Count 50,000-80,000 MIXC Mixed contaminants. Submit a new specimen if indicated. A POSITIVE == ==== Impression /Plan: 39 wks + 6 days intrauterine in active labor. Preparations in progress for delivery.
--- NOTE | 2021-06-26 07:34 | EX.PCM.OBRPT ---
Maternal Data Information Final ROSALINA: 06/27/21 Gestational age: 39 weeks 6 days Vaginal Delivery Maternal Presentation Maternal Presentation: Spontaneous Rupture of Membranes Operative Information Date of Procedure: 06/26/21 Pre-Operative Diagnosis: IUP Post-Operative Diagnosis: IUP Surgery / Procedure Performed: Spontaneous Vaginal Delivery Type of Anesthesia: Epidural Estimated Blood Loss: 250 cc Findings Description of Procedure: Spontaneous vaginal delivery of a viable female infant with Apgars of 8/9 from an occiput anterior presentation with clear amniotic fluid and normal three-vessel placenta. No episiotomy. First-degree midline laceration repaired with 3-0 Rapide suture under epidural and local anesthesia. Kiwi vacuum used x1 pull from low outlet to assist with delivery of the head due to increasing maternal fatigue after 3-1/2 to 4 hours of pushing. Sponges okay. Delivery physician: Amado Espinoza MD. Presentation: Vertex Amniotic Membrane Rupture Type: Spontaneous Amniotic Fluid Description: Clear Placental Delivery Description: Spontaneous Placenta Disposition: [facility] Cord Vessel Description: 3 Vessels Cord Entanglement: None Infant A Gender: Female (1 minute): 8 (5 minute): 9 Post Vaginal Delivery Medications Given After Delivery: IV Pitocin Episiotomy Description: None Laceration: Midline and 1st degree Complication Complications: None
[2021-06-26] MEDS: Acetaminophen 500 MG Tablet 1000 MG PO ×2 (08:11→14:38)
[2021-06-26] MEDS: Ibuprofen 600 MG Tablet PO ×2 (08:43→14:37)
[2021-06-26] MEDS: Etonogestrel 68 MG IMPLANT SC (18:56)
--- NOTE | 2021-06-26 19:12 | PCM.PN.BLA ---
Progress Note Patient seen and examined. Desires Nexplanon device. Discussed risk benefits alternatives of Nexplanon device, explained insertion procedure. Patient state understanding and wished to proceed. All questions were answered and consent was signed. Nexplanon device was placed in left arm with 3 cc 1% lidocaine.
[2021-06-27 01:09] VITALS: BP 108/58; PULSE 83; RESP 18; TEMP 36.6
[2021-06-27] MEDS: Acetaminophen 500 MG Tablet 1000 MG PO ×2 (01:15→12:41)
[2021-06-27 04:46] VITALS: BP 107/64; PULSE 80; RESP 18
--- NOTE | 2021-06-27 06:38 | PN.OBGYN_ITS ---
Subjective Subjective Overall no complaints Objective Data Objective Data Vital Signs: Vital Signs Temp Pulse Resp BP Pulse Ox 98 F 80 18 107/64 98 06/27/21 01:09 06/27/21 04:46 06/27/21 04:46 06/27/21 04:46 06/26/21 15:41 Oxygen Delivery Method Room Air Weight: 198 lb 6.656 oz Body Mass Index (BMI) 35.1 Intake & Output: Intake and Output for Last 24 Hours 06/25/21 06/26/21 06/27/21 23:59 23:59 23:59 Intake Total 1396.67 / 1396.67 2033.34 / 2033.34 Output Total 450 / 450 450 / 450 Balance 946.67 / 946.67 1583.34 / 1583.34 Lab / Micro Data Result Diagrams: 06/25/21 18:30 Micro: Microbiology 06/25/21 18:00 Nasal Secretion SARS-CoV-2 Antigen (Rapid) - Final Physical Exam Const alert, oriented x3, no apparent distress, average body habitus, healthy appearing and well nourished HEENT normocephalic and moist oral mucous membranes Head and Scalp: atraumatic Face and Sinus: normal facial exam Neck full ROM Resp normal respiratory effort, no retractions and no use of accessory muscles GI normal to inspection, nondistended, normoactive bowel sounds GI Narrative: Uterus firm and below umbilicus Extremity normal to inspection, full ROM and no clubbing, cyanosis or edema Psych mental status grossly normal, affect normal, speech normal and activity/motor b ehavior normal Assessment & Plan (1) Vaginal delivery: PLAN: day 1 status post vacuum-assisted vaginal delivery for failure to progress. Breast-feeding. Overall pain well controlled. Likely home tomorrow
[2021-06-27] MEDS: Ibuprofen 600 MG Tablet PO ×2 (06:51→18:21)
[2021-06-27 09:30] VITALS: BP 103/60; PULSE 88; RESP 16; TEMP 36.3
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
[2021-06-27 14:00] VITALS: BP 111/63; PULSE 92; RESP 16; TEMP 36.6
--- NOTE | 2021-06-27 17:00 | CASEMGMT ---
Social Work Labor and Delivery Unit Called [facility] and spoke with Radha Back in the intake department, , extension [phone]. Referral given due to dependency concerns regarding the father baby's status as a registered sex offender and the other baby is not mental health history which is currently untreated. Reported noted concern also regarding some safe sleep issues with the parents. Updated that MOB has agreed to help me grow referral, as well as likely discharge this weekend. Katie Major, form worker from [facility] to unit to meet with the MOB and FOB present. This automatic typewriter inspector presented to the MOB'S room to update, and family MOB alone in the room holding the baby. MOB appeared relaxed holding the baby. MOB agreeable to talk to children services. Children services aware of discharge timeframe for this family. Presented back to the MOB room to provide [facility] resource list, list of mental health agencies and providers, and a packet on mood and anxiety disorders. MOB reports the meeting with children services went well and the plan is to make a home visit next week. MOB expressed appreciation for resources provided, telling this automatic typewriter inspector thank you for helping. MOB's mother was in room holding the baby, and expressed encouragement to be MOB to speak up should MOB need any help upon home-going. FOB was sleeping on the couch. MOB continues to be agreeable to help me grow referral. Plan: MOB and infant will discharge home when medically ready. [facility] will follow in the community. Will be making a help me grow referral for additional community support and parent support. At this time MOB excepted mental health information only, rather than actual referral. -VICTOR M Banegas, SHIP'S OFFICER *This note was generated with [employer] software. It may contain incorrect words, spelling, and punctuation that were not noted in review of the chart prior to signing*
[2021-06-27 20:47] VITALS: BP 111/61; PULSE 79; RESP 18; TEMP 36.4
[2021-06-28 01:06] VITALS: BP 117/71; PULSE 90; RESP 18
[2021-06-28] MEDS: Ibuprofen 600 MG Tablet PO ×2 (01:08→08:17)
[2021-06-28 08:19] VITALS: BP 99/58; PULSE 69; RESP 20; TEMP 36.8
--- NOTE | 2021-06-28 10:00 | PCM.DC ---
Discharge Instructions Diet Discharge Diet: No restrictions Activity Discharge Activity: Return to Normal Activity, May Drive and May Shower May resume sexual activity in: 4-6 weeks Weight Bearing Status: Weight bearing as tolerated Dressing / Incision Call your doctor if your incision/area has: Continuous Slow Oozing and Foul Smelling Discharge Call your doctor if you observe: Fever of 101 or Higher, Shortness of breath and Chest pain Follow Up Care Please Follow Up With: Wai Major MD When: 2-week telehealth, 4 to 6 weeks Test Results: Test results from this visit will be discussed in further detail at your follow-up appointment, if applicable. Discharge Plan Admission Admit Date/Time: 06/25/21 17:48 Attending Provider: Amado Espinoza Primary Care Provider: Leydi Major Discharge Orders/Prescriptions Prescriptions: No Action PreNata 29 mg iron- 1 mg Tablet,Chewable 1 tab PO DAILY RF: 0 Disposition Discharge Orders: Discharge Patient (Routine); Ordered 06/28/21 Ordered By: Dr. Wai Major
--- NOTE | 2021-06-28 10:00 | PCM.PN.OB ---
Subjective Subjective No overnight complaints. Pain well controlled. Objective Data Objective Data Vital Signs: Vital Signs Temp Pulse Resp BP Pulse Ox 98.3 F 69 20 H 99/58 L 98 06/28/21 08:19 06/28/21 08:19 06/28/21 08:19 06/28/21 08:19 06/26/21 15:41 Oxygen Delivery Method Room Air Weight: 198 lb 6.656 oz Body Mass Index (BMI) 35.1 Intake & Output: Intake and Output for Last 24 Hours 06/26/21 06/27/21 06/28/21 23:59 23:59 23:59 Intake Total 2033.34 / 2033.34 Output Total 450 / 450 Balance 1583.34 / 1583.34 Lab / Micro Data Result Diagrams: 06/25/21 18:30 Micro: Microbiology 06/25/21 18:00 Nasal Secretion SARS-CoV-2 Antigen (Rapid) - Final Physical Exam Const alert, oriented x3, no apparent distress, average body habitus, healthy appearing and well nourished HEENT normocephalic and moist oral mucous membranes Head and Scalp: atraumatic Face and Sinus: normal facial exam Neck full ROM Resp normal respiratory effort, no retractions and no use of accessory muscles GI GI Narrative: Soft, nontender, uterus firm and below umbilicus Extremity normal to inspection, full ROM and no clubbing, cyanosis or edema Psych mental status grossly normal, affect normal, speech normal and activity/motor behavior normal Assessment & Plan (1) Vaginal delivery: PLAN: day 2. Breast-feeding. Pain well controlled. Okay to discharge home today
--- NOTE | 2021-06-28 10:03 | PCM.DC.BLA ---
Discharge Summary Date of Admission: 06/25/21 Date of Discharge: 06/28/21 Summary: Patient arrived on 06/25/2021 in labor. Subsequently had vacuum-assisted vaginal delivery for maternal exhaustion on 06/26/2021. recovery standard. Discharge home on 06/28/2021 Physical Exam Const alert, oriented x3 and no apparent distress HEENT normocephalic Eyes PERRL Resp normal respiratory effort, normal air movement, no retractions and no use of accessory muscles GI GI Narrative: Soft, nontender, uterus firm and below umbilicus Extremity normal to inspection Psych mental status grossly normal, thought process normal, cooperative, affect normal and speech normal Meaningful Use Info Meaningful Use Diagnoses (Choose all that apply): None applicable Discharge Plan Admission Admit Date/Time: 06/25/21 17:48 Primary Reason for Your Visit: Labor Attending Provider: Amado Espinoza Primary Care Provider: Leydi Major Instructions Additional Instructions / Restrictions: Regular diet, weightbearing as tolerated. Can shower, no intercourse for 4 to 6 weeks. Call if chest pain, shortness of breath, fever, increased bleeding. Follow-up 2-week telehealth, 4 to 6 weeks Discharge Orders/Prescriptions Prescriptions: No Action PreNata 29 mg iron- 1 mg Tablet,Chewable 1 tab PO DAILY RF: 0 Referrals / Follow Up: Leydi Major MD [Primary Care Provider] - Disposition Disposition (needs filled in before D/C Order can be placed): Home, Self Care
--- NOTE | 2021-07-01 09:34 | CASEMGMT ---
Social Work Labor and Delivery Unit Help Me Grow referral made via the [facility] Secure Web based referral system. No other services requested or indicated. Children services is following this family in the community. -CHANI Banegas, MECHANICAL CAD DESIGNER
== END 2021-06-28 12:25 | disposition home or self-care (01) | DRG 560 ==
LOC: WPOUT 17:56 → WP 17:56
PROVIDERS: Admitting Provider Obstetrics & Gynecology; PCP Pediatrics; Referring Provider Obstetrics & Gynecology; Visit Provider Obstetrics & Gynecology
DX: O75.81 Maternal exhaustion complicating labor and delivery (principal); Z37.0 Single live birth; Z23 Encounter for immunization; O70.0 First degree perineal laceration during delivery; Z3A.39 39 weeks gestation of pregnancy
CPT/HCPCS: 59025; 59050; 85025; 86780; 86850; 86900; 86901; 87426; 99218; J7120; G0378; J2405

== ENCOUNTER 2021-07-09 07:09 | Emergency (ER) | payer MEDICAID, SELFPAY ==
[2021-07-09 07:11] VITALS: BP 121/74; PULSE 75; RESP 14; TEMP 36.8; O2SAT 97; BMI 32.6
[2021-07-09 08:11] LABS: Anion Gap 8 (5-15); BUN 9 mg/dL (7-18); BUN/Creat Ratio 11.2 RATIO (10-20); Calcium,Total 9.1 mg/dL (8.5-10.1); Chloride 111 mmol/L (98-107); EST Glomerular Filtration Rate 96 mL/min (>60); Est Glom Filt Rate - Afr Amer 116 mL/min (>60); Estimated Creatinine Clearance 92.79 ml/min; Glucose 84 mg/dL (74-106); Potassium 3.6 mmol/L (3.5-5.1); Sodium Level 142 mmol/L (136-145)
--- NOTE | 2021-07-09 08:13 | EDS_ITS ---
HPI HPI - Female History of Present Illness Chief Complaint: Vag Bleeding Narrative Narrative: 21-year-old female presenting with vaginal bleeding. She gave on 06/26/2021 and had a midline tear which was sutured. She states that she had noted some spotting intermittently and she has been wearing diaper. Over the last days she is seeing more blood in the diaper. She does admit to having clots. She does state that she had some vague right-sided pain in her lower abdomen. She describes this as a mild ache. Patient has not had nausea or vomiting. She is breast-feeding. Denies urinary complaints. She is not lightheaded or dizzy. [facility] Medical History Anxiety Depression Psychiatric disorder Trauma Home Medications [id number] acid [PreNata] 1 tab PO DAILY 12/19/20 [History Last Taken 06/24/21 20:00] Allergy/AdvReac Type Severity Reaction Status Date / Time latex AdvReac Other Verified 07/09/21 07:10 Social History Smoking Status: Never smoker ROS ROS ED Constitutional Constitutional ED: Denies chills or fever(s) Eyes Eyes: Denies blurry vision or diplopia ENT ENT ED: Denies rhinorrhea or sore throat Cardiovascular Cardiovascular: Denies chest pain or palpitations Respiratory/Chest Respiratory/Chest: Denies cough, dyspnea or stridor Gastrointestinal Gastrointestinal: Reports abdominal pain; Denies diarrhea, nausea or vomiting Genitourinary Genitourinary ED: Reports other Details: Vaginal bleeding Musculoskeletal Musculoskeletal: Denies myalgias Integumentary Denies abscess or rash Neurologic Neurologic: Denies headache(s) or weakness Psychiatric Psychiatric: Denies anxiety or depression EXAM Physical Exam Const Vital Signs: 07/09/21 07:11 Temperature 98.2 F Temperature Source Temporal Pulse Rate 75 Respiratory Rate 14 Blood Pressure 121/74 H Blood Pressure Mean 89 Pulse Ox 97 Oxygen Delivery Method Room Air Positive well nourished General Appearance ED: NAD; Negative for pallor HEENT Reports moist mucous membranes Negative for trauma Eyes PERRL and EOMs intact bilaterally General Eye ED: Negative for pale conjunctiva or scleral icterus Neck no lymphadenopathy and supple Resp normal respiratory effort and clear to auscultation bilaterally Cardio regular rate and regular rhythm GI soft to palpation and non-distended GI Narrative: Mild right-sided tenderness of the abdomen above the level of the umbilicus on the right. Abdomen nonperitoneal. No CVA tenderness. Auscultation: normoactive bowel sounds Narrative: Visualization externally of the introitus shows there is no hemorrhaging. There is some brown blood in the vaginal vault. External Female Exam: normal appearance of the urethra; Negative for external swelling or external laceration Neuro oriented x3 Sensorium / Orientation: alert Psych mental status grossly normal Skin General Skin Exam: Negative for jaundice or pallor MDM MDM MDM Narrative Medical decision making narrative: Obtained basic labs and her CBC shows no leukocytosis. Her hemoglobin is 10 and it was 11.2 predelivery on the fifth. BMP unremarkable. Patient was discussed with Dr. Espinoza and he stated that if she is breast-feeding she can have abnormalities of bleeding for up to 2 years. He did not recommend ultrasound. I did tell him about her vague right-sided pain. I did offer to give her medicine to treat her pain and she states that she does not need anything. Given that her blood work is not showing any sign of infection, dehydration, kidney injury I will send her home and have her follow-up with her OB. Impression: 1. Abdominal pain 2. bleed Lab Data Attestation: I reviewed the patient's lab results. Labs: Laboratory Results - last 24 hr 07/09/21 07/09/21 07:45 07:45 WBC 6.7 RBC 3.66 L Hgb 10.0 L Hct 33.6 L MCV 91.8 MCH 27.3 MCHC 29.8 L RDW Std Deviation 46.1 H RDW Coeff of [place] 13.8 Plt Count 546 H MPV 8.9 Immature Gran % (Auto) 0.300 Neut % (Auto) 58.1 Lymph % (Auto) 31.2 [place] % (Auto) 6.9 Eos % (Auto) 3.1 Baso % (Auto) 0.4 Absolute Neuts (auto) 3.9 Absolute Lymphs (auto) 2.09 Nucleated RBC % 0 Sodium 142 Potassium 3.6 Chloride 111 H Carbon Dioxide 23.0 Anion Gap 8 BUN 9 Creatinine 0.80 Estim Creat Clear Calc 92.79 Est GFR (MDRD) Af Amer 116 Est GFR (MDRD) Non-Af 96 BUN/Creatinine Ratio 11.2 Glucose 84 Calcium 9.1 Discharge Plan Triage Chief Complaint: Vag Bleeding ED Provider: Cruz Paulino Dx/Rx/DC Orders Prescriptions: No Action PreNata 29 mg iron- 1 mg Tablet,Chewable 1 tab PO DAILY RF: 0 Primary Care Provider: Leydi Major
[2021-07-09 08:24] LABS: Absolute Lymphocyte Count 2.09 X10^3/uL (0.83-4.51); Absolute Neutrophil Count 3.9 X10^3/uL (2.0-7.7); Basophil# 0.03 X10^3/uL; Basophil% 0.4 % (0-1); Eosinophil# 0.21 X10^3/uL; Eosinophils% 3.1 % (0-5); Hematocrit 33.6 % (37-47); Lymphocyte # 2.09 X10^3/ul (0.83-4.51); Lymphocyte % 31.2 % (19-41); Mean Corp Hgb Conc 29.8 g/dL (32-36); Mean Corpuscular Hgb 27.3 pg (27.0-32.0); Mean Corpuscular Volume 91.8 fL (81-99); Mean Platelet Vol. 8.9 fl (6.2-12.0); Monocyte# 0.46 X10^3/uL; Monocyte% 6.9 % (0-10); NRBC Flagged by Analyzer 0 % (0-5); Neutrophil # 3.88 X10^3/uL (2.7-7.7); Neutrophil % 58.1 % (47-70); Platelet Count 546 K/mm3 (150-450); RBC Distribution Width CV 13.8 % (11.6-14.6); RBC Distribution Width SD 46.1 fl (35.1-43.9); Red Blood Count 3.66 M/mm3 (4.2-5.4); White Blood Count 6.7 K/mm3 (4.4-11.0)
[2021-07-09 08:59] VITALS: BP 113/67; PULSE 57; RESP 16; O2SAT 99
== END 2021-07-09 09:00 | disposition home or self-care (01) ==
PROVIDERS: Emergency Provider Student in an Organized Health Care Education/Training Program; PCP Pediatrics; Visit Provider Student in an Organized Health Care Education/Training Program
DX: N93.9 Abnormal uterine and vaginal bleeding, unspecified (principal); R10.31 Right lower quadrant pain
CPT/HCPCS: 80048; 85025; 99283; A4216

== ENCOUNTER 2021-08-04 12:34 | Emergency (ER) | payer MEDICAID, SELFPAY ==
[2021-08-04 12:35] VITALS: BP 119/75; PULSE 103; RESP 18; TEMP 36.6; O2SAT 100; BMI 26.4
--- NOTE | 2021-08-04 13:43 | EX.ED.VIS.PS ---
HPI HPI - Psych History of Present Illness Chief Complaint: Suicidal Informant: patient Onset/Context/Timing Onset: Month(s) Context: Gradual Onset Timing: Continuous Associated Symptoms Associated Symptoms - Psych: Positive for Depressed, Suicidal Thoughts and Auditory Hallucinations Specific plan (suicidal thought): Cutting self or taking Tylenol Narrative Narrative: Patient presents with suicidal ideations that have been getting worse over the past few months. Patient states they became worse after she delivered her child recently. Patient states she has thought of cutting herself and taking Tylenol and going to sleep. Patient admits to some auditory hallucinations where she hears voices that would tell her that she is better off . Patient states she has been having some suicidal ideation since she was 17. [facility] Medical History Anxiety Depression Psychiatric disorder Trauma Home Medications cephalexin 500 mg PO Q6 #12 capsule 08/04/21 [Rx Last Taken Unknown] fluoxetine 20 mg PO DAILY 08/04/21 [History Last Taken Unknown] Allergy/AdvReac Type Severity Reaction Status Date / Time latex AdvReac Other Verified 08/04/21 12:39 Social History Smoking Status: Never smoker ROS ROS ED Constitutional Constitutional ED: Denies chills or fever(s) Eyes Eyes: Denies blurry vision or change in vision ENT ENT ED: Denies rhinorrhea or sore throat Cardiovascular Cardiovascular: Denies chest pain or palpitations Respiratory/Chest Respiratory/Chest: Denies cough or dyspnea Gastrointestinal Gastrointestinal: Denies nausea or vomiting Genitourinary Genitourinary ED: Denies dysuria or hematuria Musculoskeletal Musculoskeletal: Denies back pain or neck pain Integumentary Denies abscess or rash Neurologic Neurologic: Denies headache(s) or weakness Psychiatric Psychiatric: Reports depression and suicidal thoughts Allergic/Immunologic Allergic/Immunologic ED: Denies mouth swelling or urticaria EXAM Physical Exam Const Vital Signs: 08/04/21 12:35 08/04/21 14:02 Temperature 97.9 F Temperature Source Temporal Pulse Rate 103 H Respiratory Rate 18 14 Blood Pressure 119/75 Blood Pressure Mean 89 Pulse Ox 100 Oxygen Delivery Method Room Air Positive well nourished and well developed General Appearance ED: well developed HEENT normocephalic and atraumatic Neck supple and no JVD Resp normal respiratory effort and clear to auscultation bilaterally Cardio no murmurs Rate: regular rate Rhythm: regular rhythm GI non-tender and non-distended Auscultation: normoactive bowel sounds Palpation: soft Extremity normal to inspection General Extremety ED: Negative for edema or tenderness General Extremity: Negative for edema Neuro oriented x3, CN's II-XII intact bilaterally and no sensory deficits noted Sensorium / Orientation: alert Motor Exam: strength 5/5 throughout Psych mental status grossly normal Attitude: calm Activity / Motor Behavior: appropriate eye contact Speech: normal speech Mood & Affect: depressed and flat affect Thought Content: suicidality and hallucination(s) Positive for auditory Skin Rashes: no rashes MDM MDM MDM Narrative Medical decision making narrative: Basic labs were obtained. CBC was within normal limits. Basic metabolic profile was within normal limits. Serum hCG was negative. Urinalysis shows leukocyte esterase of 500 with greater than 100 white blood cells. Serum alcohol level is less than 3. Patient is feeling better on reevaluation. Patient was given a dose of Keflex here. Patient was given a prescription for Keflex. Patient was instructed to follow-up with her primary care physician in 5 to 7 days. Patient was also instructed to follow-up with the counseling center in 3 to 5 days. Patient was instructed return if worse in any way. Patient understood and was agreeable with the plan. All questions were answered. Lab Data Labs: Laboratory Results - last 24 hr 08/04/21 08/04/21 08/04/21 14:05 14:05 14:05 WBC 9.5 RBC 4.35 Hgb 11.6 L Hct 38.4 MCV 88.3 MCH 26.7 L MCHC 30.2 L RDW Std Deviation 45.3 H RDW Coeff of Chacho 14.0 Plt Count 490 H MPV 9.7 Immature Gran % (Auto) 0.300 Neut % (Auto) 65.1 Lymph % (Auto) 27.1 [place] % (Auto) 5.3 Eos % (Auto) 1.6 Baso % (Auto) 0.6 Absolute Neuts (auto) 6.2 Absolute Lymphs (auto) 2.57 Nucleated RBC % 0 Sodium 141 Potassium 3.9 Chloride 109 H Carbon Dioxide 25.0 Anion Gap 7 BUN 8 Creatinine 0.82 Estim Creat Clear Calc 90.53 Est GFR (MDRD) Af Amer 114 Est GFR (MDRD) Non-Af 94 BUN/Creatinine Ratio 9.8 L Glucose 79 Calcium 9.6 Serum , Qual Urine Color Urine Clarity Urine pH Ur Specific [place] Urine Protein Urine Glucose (UA) Urine Ketones Urine Occult Blood Urine Nitrite Urine Bilirubin Urine Urobilinogen Ur Leukocyte Esterase Urine RBC Urine WBC Ur Squamous Epith Cells Urine Bacteria Urine Mucus Urine Opiates Screen Urine Methadone Screen Ur Barbiturates Screen Ur Phencyclidine Scrn Ur Amphetamines Screen U Methamphetamin-MDMA U Benzodiazepines Scrn Urine Cocaine Screen U Cannabinoids Screen Ur Drug Screen Comment Ethyl Alcohol < 3.0 08/04/21 08/04/21 08/04/21 14:05 14:18 15:19 WBC RBC Hgb Hct MCV MCH MCHC RDW Std Deviation RDW Coeff of [place] Plt Count MPV Immature Gran % (Auto) Neut % (Auto) Lymph % (Auto) [place] % (Auto) Eos % (Auto) Baso % (Auto) Absolute Neuts (auto) Absolute Lymphs (auto) Nucleated RBC % Sodium Potassium Chloride Carbon Dioxide Anion Gap BUN Creatinine Estim Creat Clear Calc Est GFR (MDRD) Af Amer Est GFR (MDRD) Non-Af BUN/Creatinine Ratio Glucose Calcium Serum , Qual NEGATIVE Urine Color Yellow Urine Clarity Sl. Cloudy Urine pH 7.0 Ur Specific [place] 1.015 Urine Protein 15 H Urine Glucose (UA) Normal Urine Ketones Negative Urine Occult Blood 25 H Urine Nitrite Negative Urine Bilirubin Negative Urine Urobilinogen Normal Ur Leukocyte Esterase 500 H Urine RBC 0 SEEN Urine WBC >100 SEEN Ur Squamous Epith Cells 0 SEEN Urine Bacteria 0 SEEN Urine Mucus 0 SEEN Urine Opiates Screen Cancelled Urine Methadone Screen Cancelled Ur Barbiturates Screen Cancelled Ur Phencyclidine Scrn Cancelled Ur Amphetamines Screen Cancelled U Methamphetamin-MDMA Cancelled U Benzodiazepines Scrn Cancelled Urine Cocaine Screen Cancelled U Cannabinoids Screen Cancelled Ur Drug Screen Comment Cancelled Ethyl Alcohol 08/04/21 15:19 WBC RBC Hgb Hct MCV MCH MCHC RDW Std Deviation RDW Coeff of [place] Plt Count MPV Immature Gran % (Auto) Neut % (Auto) Lymph % (Auto) [place] % (Auto) Eos % (Auto) Baso % (Auto) Absolute Neuts (auto) Absolute Lymphs (auto) Nucleated RBC % Sodium Potassium Chloride Carbon Dioxide Anion Gap BUN Creatinine Estim Creat Clear Calc Est GFR (MDRD) Af Amer Est GFR (MDRD) Non-Af BUN/Creatinine Ratio Glucose Calcium Serum , Qual Urine Color Urine Clarity Urine pH Ur Specific [place] Urine Protein Urine Glucose (UA) Urine Ketones Urine Occult Blood Urine Nitrite Urine Bilirubin Urine Urobilinogen Ur Leukocyte Esterase Urine RBC Urine WBC Ur Squamous Epith Cells Urine Bacteria Urine Mucus Urine Opiates Screen Urine Methadone Screen Ur Barbiturates Screen Ur Phencyclidine Scrn Ur Amphetamines Screen U Methamphetamin-MDMA U Benzodiazepines Scrn Urine Cocaine Screen U Cannabinoids Screen Ur Drug Screen Comment Ethyl Alcohol Discharge Plan Triage Chief Complaint: Suicidal ED Provider: Jeff Rolon Dx/Rx/DC Orders Clinical Impression: Depression, Urinary tract infection Instructions: ED Depression, ED CYSTITIS Female Adult Prescriptions: New cephalexin [cephalexin] 500 MG capsule 500 mg PO Q6 Qty: 12 RF: 0 No Action fluoxetine 20 mg capsule 20 mg PO DAILY RF: 0 Primary Care Provider: Leydi Major Referrals: Counseling,Center [GROUP OF PHYSICIANS] - 3-5 Days Leydi Major MD [Primary Care Provider] - 3-5 Days Disposition Disposition: Home, Self Care
[2021-08-04 14:02] VITALS: RESP 14
[2021-08-04 14:15] LABS: Absolute Lymphocyte Count 2.57 X10^3/uL (0.83-4.51); Absolute Neutrophil Count 6.2 X10^3/uL (2.0-7.7); Basophil# 0.06 X10^3/uL; Basophil% 0.6 % (0-1); Eosinophil# 0.15 X10^3/uL; Eosinophils% 1.6 % (0-5); Hematocrit 38.4 % (37-47); Hemoglobin 11.6 g/dL (12.0-15.0); Lymphocyte # 2.57 X10^3/ul (0.83-4.51); Lymphocyte % 27.1 % (19-41); Mean Corp Hgb Conc 30.2 g/dL (32-36); Mean Corpuscular Hgb 26.7 pg (27.0-32.0); Mean Corpuscular Volume 88.3 fL (81-99); Mean Platelet Vol. 9.7 fl (6.2-12.0); Monocyte% 5.3 % (0-10); NRBC Flagged by Analyzer 0 % (0-5); Neutrophil # 6.17 X10^3/uL (2.7-7.7); Neutrophil % 65.1 % (47-70); Platelet Count 490 K/mm3 (150-450); RBC Distribution Width SD 45.3 fl (35.1-43.9); Red Blood Count 4.35 M/mm3 (4.2-5.4); White Blood Count 9.5 K/mm3 (4.4-11.0)
[2021-08-04 14:28] LABS: Anion Gap 7 (5-15); BUN 8 mg/dL (7-18); BUN/Creat Ratio 9.8 RATIO (10-20); Calcium,Total 9.6 mg/dL (8.5-10.1); Chloride 109 mmol/L (98-107); Creatinine, Serum 0.82 mg/dL (0.55-1.02); EST Glomerular Filtration Rate 94 mL/min (>60); Est Glom Filt Rate - Afr Amer 114 mL/min (>60); Estimated Creatinine Clearance 90.53 ml/min; Glucose 79 mg/dL (74-106); Potassium 3.9 mmol/L (3.5-5.1); Sodium Level 141 mmol/L (136-145)
[2021-08-04 14:31] LABS: Internal QC Validated? YES +Cl - CLEAR BKGD; Pregnancy, Serum, hCG Quali. NEGATIVE Negative
[2021-08-04 14:48] LABS: Alcohol, Blood (Medical)-Serum < 3.0 mg/dL
--- NOTE | 2021-08-04 15:00 | CM.ED ---
Social Work Consult: Suicidal Ideation Referral source: Dr. Rolon Chief Complaint: Presents to the ED after taking patients to 5 week appointment. At appointment patient triggered for risk of completing suicide. Marital/Social History: Single Living Situation: Lives with [id number], , Enrique and 5 week old child, winter. Support/Resources: Enrique, adopted mother and biological mother as well as sister. History: Denies Education/Employment Hx: Completed high school. Denies any issues with comprehension or understanding. Currently not working and has applied for disability. Mental Health Treatment/History: PTSD, Bi-polar, Depression, Anxiety, and Borderline Personality Disorder. Patient prescribed Fluoxetine to [facility]. Patient reports history of inpatient psychiatric placement to [facility] in 2020. Triggers/Stressors: Patient recently found out that patient , Enrique was cheating on patient. Patient states we are good now and to have forgiven him but it is still a thought. Coping Skills: Holding Winter, coloring, playing games on phone. Abuse Issues: Denies Substance Abuse Hx: Denies. Risk to Self/Others: Patient denies active suicidal thoughts. Patient reports that questioner at pediatricians office asked if patient had suicidal thoughts in the past 3 months, patient reports to have had suicidal thoughts in the past 3 months but not today. Patient states that last suicidal thought was two weeks ago. Patient denies plan or intent to complete suicide. Patient does report history of suicide attempt starting at 17. Patient reports to believe that patient attempted to end own life 15 times since 17 but has not attempted to complete suicide since 2020 when patient was sent to psychiatric facility. Patient denies homicidal thoughts, plans, intents. Patient denies self harming behavior. Mental Status Exam: A&Ox3 Appearance/General Behavior: Calm. Clean. Mood/Affect: Pleasant and engaged affect. Communication Pattern: Responds to questions. Thought Process: Denies hallucinations, paranoia, or delusions. Judgement: Good Assessment: Met with patient in room. Introduced self and social service technician role. Patient holding 5 week old , Winter Rain Adonis. Patient reports to have gotten in November 2020 but has yet to change last name to Adonis. Patient states to be looking forward to big wedding this year. Patient reports to have gone to the [place] and got in November 2020. Patient states to want to live for Winter and my mom. Patient states to want to keep working towards having a happy relationship with patient spouse. Patient is agreeable to receive local counseling resources and supports. Patient reports to feel safe reaching out to others if patient has active suicidal thoughts. Patient states I let others know when I am not doing well. Patient agreeable to complete safety plan. Enrique also supporting plan for patient to discharge to community. This social service technician provided patient with community resources. Patient agreeable to phone call on Wednesday to follow up with how patient is doing. Patient counseled on lethal means, no firearms in the home and family monitors medications. Collaborating with Dr. Rolon, agreeable to safety plan to home for patient. PLAN: Discharge to community. Beba GANN, VICTOR M
[2021-08-04 15:25] LABS: Bacteria 0 SEEN /hpf (None Seen); Mucous, Urine 0 SEEN /hpf (<or=2+); Red Blood Cells-Urine 0 SEEN /hpf (0-5); Squamous Epithelial Cells - UA 0 SEEN /hpf (5-10)
[2021-08-04 15:26] LABS: Color, Urine Yellow (Yellow); Glucose, Dipstick Normal (Normal); Ketone-Dipstick Negative (Negative); Leukocyte Esterase-Dipstick 500 /ul (Negative); Nitrite-Dipstick Negative (Negative); Occult Blood-Urine 25 /ul (Negative); Protein-Dipstick 15 mg/dl (Negative); Specific Gravity, Urine 1.015 (1.002-1.030); Urine Bilirubin Dipstick Negative (Negative); Urine Clarity Sl. Cloudy (Clear); Urine Urobilinogen Normal (Normal)
[2021-08-04 15:33] LABS: White Blood Cells >100 SEEN /hpf (0-5)
[2021-08-04 16:00] VITALS: BP 118/74; PULSE 81; RESP 16; O2SAT 98
[2021-08-04 16:00] LABS: Amphetamine Urine VISTA NEGATIVE (<1000 ng/mL); Barbiturate Urine VISTA NEGATIVE (< 200 ng/mL); Benzodiazepine Urine VISTA NEGATIVE (< 200 ng/mL); Cocaine Urine VISTA NEGATIVE (< 300 ng/mL); Ecstacy Urine VISTA NEGATIVE (< 500 ng/mL); Methadone Urine VISTA NEGATIVE (< 300 ng/mL); PCP Urine VISTA NEGATIVE (< 25 ng/mL); THC Urine VISTA NEGATIVE (< 50 ng/mL); Vista UDS pH Range 6
--- NOTE | 2021-08-04 16:01 | ED.RN ---
THIS NURSE REVIEWED D/C INSTRUCTIONS WITH PT AND VISITOR. PT VERBALIZED UNDERSTANDING OF INSTRUCTIONS. IV D/C. IV CATHETER INTACT. PT TOLERATED WELL. PT DENIES FURTHER NEEDS OR QUESTIONS AT THIS TIME
--- NOTE | 2021-08-06 16:27 | CM.ED ---
Social Work Telephone call to patient for follow-up call. Patient answering phone. Patient reports to be doing well. Patient states that when patient has felt down over the past few days patient has been able to reach out to support system and use coping skills. Active support and listening. Patient denies any concerns/needs in the community. Will continue to follow. Beba GANN, GLEN-S
== END 2021-08-04 16:02 | disposition home or self-care (01) ==
PROVIDERS: Emergency Provider Emergency Medicine; PCP Pediatrics; Visit Provider Emergency Medicine
DX: N39.0 Urinary tract infection, site not specified (principal); F32.A Depression, unspecified; R45.851 Suicidal ideations; R44.0 Auditory hallucinations; F41.9 Anxiety disorder, unspecified; Z79.899 Other long term (current) drug therapy
CPT/HCPCS: 80048; 80307; 81001; 82077; 84703; 85025; 99285; A4216

== ENCOUNTER 2021-09-04 18:50 | Emergency (ER) | payer MEDICAID, SELFPAY ==
[2021-09-04 18:53] VITALS: BP 118/79; PULSE 88; RESP 18; TEMP 37; O2SAT 99; BMI 31.6
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
[2021-09-04 20:34] LABS: Absolute Lymphocyte Count 1.91 X10^3/uL (0.83-4.51); Absolute Neutrophil Count 13.2 X10^3/uL (2.0-7.7); Basophil# 0.04 X10^3/uL; Basophil% 0.2 % (0-1); Eosinophil# 0.11 X10^3/uL; Eosinophils% 0.7 % (0-5); Hematocrit 39.3 % (37-47); Hemoglobin 12.6 g/dL (12.0-15.0); Lymphocyte # 1.91 X10^3/ul (0.83-4.51); Lymphocyte % 11.9 % (19-41); Mean Corp Hgb Conc 32.1 g/dL (32-36); Mean Corpuscular Hgb 25.8 pg (27.0-32.0); Mean Corpuscular Volume 80.5 fL (81-99); Mean Platelet Vol. 9.4 fl (6.2-12.0); Monocyte# 0.71 X10^3/uL; Monocyte% 4.4 % (0-10); NRBC Flagged by Analyzer 0 % (0-5); Neutrophil # 13.23 X10^3/uL (2.7-7.7); Neutrophil % 82.4 % (47-70); Platelet Count 518 K/mm3 (150-450); RBC Distribution Width CV 14.6 % (11.6-14.6); RBC Distribution Width SD 42.8 fl (35.1-43.9); Red Blood Count 4.88 M/mm3 (4.2-5.4); White Blood Count 16.1 K/mm3 (4.4-11.0)
[2021-09-04 20:38] LABS: Amphetamine Urine VISTA NEGATIVE (<1000 ng/mL); Barbiturate Urine VISTA NEGATIVE (< 200 ng/mL); Benzodiazepine Urine VISTA NEGATIVE (< 200 ng/mL); Cocaine Urine VISTA NEGATIVE (< 300 ng/mL); Ecstacy Urine VISTA NEGATIVE (< 500 ng/mL); Methadone Urine VISTA NEGATIVE (< 300 ng/mL); PCP Urine VISTA NEGATIVE (< 25 ng/mL); THC Urine VISTA NEGATIVE (< 50 ng/mL); Vista UDS pH Range 5
[2021-09-04 20:43] LABS: Internal QC Validated? YES +Cl - CLEAR BKGD; Pregnancy, Serum, hCG Quali. NEGATIVE Negative
[2021-09-04 20:48] LABS: Anion Gap 6 (5-15); BUN 12 mg/dL (7-18); BUN/Creat Ratio 14.1 RATIO (10-20); Calcium,Total 9.5 mg/dL (8.5-10.1); Chloride 110 mmol/L (98-107); Creatinine, Serum 0.85 mg/dL (0.55-1.02); EST Glomerular Filtration Rate 90 mL/min (>60); Est Glom Filt Rate - Afr Amer 109 mL/min (>60); Estimated Creatinine Clearance 87.33 ml/min; Glucose 91 mg/dL (74-106); Potassium 3.9 mmol/L (3.5-5.1); Sodium Level 140 mmol/L (136-145)
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
[2021-09-04 21:16] VITALS: RESP 18; O2SAT 100
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
--- NOTE | 2021-09-04 22:20 | CM.ED ---
Patient declined at [facility]. [facility] beds. MAURA faxed referral. MAURA updated Shoshana at [facility]. Stefany WILDE
[2021-09-04 23:11] VITALS: RESP 16; O2SAT 100
[2021-09-05 00:23] VITALS: RESP 16; O2SAT 100
[2021-09-05 01:03] VITALS: RESP 16
[2021-09-05 02:06] VITALS: RESP 16
--- NOTE | 2021-09-05 04:39 | NURSING ---
ACCEPTED TO [facility] [phone] FOR REPORT. PHYSICIANS GAVE A 10:30AM ETA
[2021-09-05 05:15] VITALS: PULSE 95; RESP 16; O2SAT 97
[2021-09-05 06:30] VITALS: RESP 17
[2021-09-05 09:02] VITALS: BP 111/81; PULSE 79; RESP 18; O2SAT 97
== END 2021-09-05 09:08 ==
PROVIDERS: Emergency Provider Emergency Medicine; PCP Pediatrics; Visit Provider Emergency Medicine
DX: R45.851 Suicidal ideations (principal); F31.9 Bipolar disorder, unspecified; F60.3 Borderline personality disorder; Z63.8 Other specified problems related to primary support group; F41.9 Anxiety disorder, unspecified; Z79.899 Other long term (current) drug therapy
CPT/HCPCS: 80048; 80307; 82077; 84703; 85025; 87811; 99285

== ENCOUNTER 2021-12-30 10:43 | Emergency (ER) | payer OTHER, MEDICAID, SELFPAY ==
[2021-12-30 10:44] VITALS: BP 123/56; PULSE 73; RESP 18; TEMP 35.9; O2SAT 97; BMI 26.2
--- NOTE | 2021-12-30 11:07 | EDS_ITS ---
HPI History of Present Illness Chief Complaint: Back Narrative Narrative: Patient presents with lumbar back pain that she is had for 3 to 4 days. She denies any injury. She states she had back pain when she was with her baby girl. She is now 6 months old. She is not breast-feeding. She has pain with movement of her low back. She denies any radiation down her leg. No red flag signs such as saddle anesthesias or loss of bowel or bladder. No fevers or chills. Over the last 3 to 4 days she has had increasing back pain that is worse with movement. [facility] Medical History Anxiety Depression Psychiatric disorder Trauma Home Medications fluoxetine 20 mg capsule 40 mg PO DAILY 08/04/21 [History Last Taken Unknown] etonogestrel 68 mg subdermal implant (Nexplanon) 68 mg subdermal DAILY 09/04/21 [History Last Taken Unknown] [id number] 1 mg tablet 1 tab PO DAILY 09/04/21 [History Last Taken Unknown] cyclobenzaprine 10 mg tablet 10 mg PO BID PRN muscle spasm #10 tabs 12/30/21 [Rx Last Taken Unknown] naproxen 500 mg tablet (Naprosyn) 500 mg PO BID PRN pain #20 tabs 12/30/21 [Rx Last Taken Unknown] Allergy/AdvReac Type Severity Reaction Status Date / Time latex AdvReac Other Verified 12/30/21 11:17 Social History Smoking Status: Never smoker ROS ROS ED ROS Narrative Constitutional: No fever, no chills. HEENT: No sore throat. No neck pain. No loss of vision. No rhinorrhea. Cardiovascular: No chest pain. No palpitations. No pedal edema. Respiratory: No cough, no shortness of breath. Abdominal: No abdominal pain. No nausea. No vomiting. Genitourinary: No dysuria. No hematuria. Musculoskeletal: No myalgias. No arthralgias. Positive lumbar back pain, worse with movement. Neurologic: No headaches. No dizziness. No lightheadedness. No saddle anesthesia. No loss of bowel or bladder. No radiation of pain down the legs. Skin: No rash. No change in color. Psychiatric: No depression. No anxiety. EXAM Physical Exam Narrative Exam Narrative: Afebrile. Vital signs noted. HEENT: Normocephalic. Atraumatic. PERRL, EOMI. Neck soft and supple. No point tenderness or step off. Cardiovascular: Regular rate and rhythm. No murmurs, rubs, or gallops appreciated. Respiratory: No tachypnea. Lungs clear to auscultation bilaterally. Gastrointestinal: Abdomen soft, nontender, with normoactive bowel sounds. No rebound or guarding. Neurological: Awake. Alert. Nonfocal, nonlateralizing. DTRs equal and symmetric. Straight leg raising in supine position is negative bilaterally. EHL intact bilaterally. Skin: No rash. Normal color. No pallor. Musculoskeletal: No pedal edema. Full range of motion extremities. No vertebral point tenderness or bony step-off of lumbar area. Mild tenderness to palpation paraspinal musculature. Const Vital Signs: 12/30/21 10:44 Temperature 96.7 F L Temperature Source Temporal Pulse Rate 73 Respiratory Rate 18 Blood Pressure 123/56 H Blood Pressure Mean 78 Pulse Ox 97 Oxygen Delivery Method Room Air MDM MDM MDM Narrative Medical decision making narrative: I do feel that she has more of a lumbar strain, most likely from lifting her child multiple times. She does have implantable control in. She is given naproxen 500 mg orally here. I do not feel that urinalysis is indicated because she is not having dysuria. I do feel that she can be discharged with prescriptions for high-dose anti-inflammatory and muscle relaxers to take only at night as she has to care for her child during the day. Radiology requested that urine be performed which is negative. I reviewed and interpreted the patient's lumbar spine x-rays which show no acute fracture. At this point in time, upon repeat examination she states she is feeling mildly improved. I do feel she has more of a lumbar strain. She will be given a prescription given for naproxen and for Flexeril to take at night as needed for muscle spasms. She will apply ice to the affected area. She will follow-up with her primary care physician. Return instructions to the emergency department were reviewed. Disposition is discharged home in stable condition. Lab Data Attestation: I reviewed the patient's lab results. Labs: Laboratory Results - last 24 hr 12/30/21 11:35 Urine Test Negative Discharge Plan Triage Chief Complaint: Back ED Provider: Vaughn Henriquez Dx/Rx/DC Orders Clinical Impression: Back pain, Lumbar strain Instructions: ED Back Pain (Acute or Chronic), ED Back Sprain/Strain Prescriptions: New cyclobenzaprine 10 mg tablet 10 mg PO BID PRN (Reason: muscle spasm) Qty: 10 0RF naproxen [Naprosyn] 500 mg tablet 500 mg PO BID PRN (Reason: pain) Qty: 20 0RF No Action fluoxetine 20 mg capsule 40 mg PO DAILY 1 mg Tablet 1 tab PO DAILY Nexplanon 68 mg Implant 68 mg SUBDERMAL DAILY Primary Care Provider: Juan Dela Cruz Referrals: Leydi Major MD [NON-STAFF] - Disposition Disposition: Home, Self Care
[2021-12-30 11:51] LABS: Internal QC Validated? YES +Cl - CLEAR BKGD; Pregnancy, Urine Negative Negative
--- NOTE | 2021-12-30 12:30 | RAD_ITS ---
STUDY: X-RAY - LUMBAR SPINE REASON FOR EXAM: Female, 21 years old. 2 day history of low back pain. No known injury. TECHNIQUE: 3 view(s) of the lumbar spine were obtained. COMPARISON: None FINDINGS: There is an exaggerated lumbar lordosis. There is no substantial scoliosis. There is a normal alignment of the vertebrae. Normal vertebral bodies and endplates. Normal disc space heights. Large amount of fecal material is seen in the colon. RAD/Lumbar Spine 2 or 3 Views IMPRESSION: Exaggerated lumbar lordosis. Large amount of fecal material is seen in the colon. Electronically Signed: Perry Whatley MD at 12:53 EDT ,
== END 2021-12-30 12:55 | disposition home or self-care (01) ==
PROVIDERS: Emergency Provider Emergency Medicine; PCP Family Medicine; Visit Provider Emergency Medicine
DX: S39.012A Strain of muscle, fascia and tendon of lower back, initial encounter (principal); F41.9 Anxiety disorder, unspecified; F32.A Depression, unspecified; Z79.899 Other long term (current) drug therapy; X58.XXXA Exposure to other specified factors, initial encounter
CPT/HCPCS: 72100; 81025; 99283

== ENCOUNTER 2022-01-11 15:51 | Emergency (ER) | payer OTHER, SELFPAY ==
[2022-01-11 15:52] VITALS: BP 112/77; PULSE 100; RESP 15; TEMP 36.9; O2SAT 97; BMI 26.4
--- NOTE | 2022-01-11 16:34 | ED.VIS.BACK ---
HPI History of Present Illness Chief Complaint: Back Detail of Chief Complaint: Back pain for about 2 weeks Informant: patient Onset/Context/Timing Current Severity: 12/28 Narrative Narrative: Patient presents the emergency department complaint of pain in her back for the last 2 weeks. Patient states the pain for started when she bent over to fruit or nut picker her 6-month-old and she had a sudden onset of pain. Patient was seen in the emergency department for her back pain and had x-rays that were unremarkable. Patient was given a muscle relaxer and naproxen but she states the muscle relaxer makes her sleepy and she cannot tolerate taking it when she tried to take care of her child. Patient denies pain rating down her legs. She denies dysuria. She has been Nexplanon control. Patient also tells me she has had diarrhea for 3 days. She denies any saddle anesthesia or incontinence of urine. She has had some incontinence since she started having diarrhea because she can get to the bathroom in time. Patient states pain is worse with certain movements such as getting up from a seated position. Patient currently rates her pain a 7 out of 10. Prior similar symptoms: No PFSH PFSH Medical History Anxiety Depression Psychiatric disorder Trauma Home Medications etonogestrel 68 mg subdermal implant (Nexplanon) 68 mg subdermal DAILY 09/04/21 [History Last Taken Unknown] naproxen 500 mg tablet (Naprosyn) 500 mg PO BID PRN pain #20 tabs 12/30/21 [Rx Last Taken Unknown] hydrocodone-acetaminophen 5-325mg 5mg-325mg 1 tab PO Q4H PRN PRN Pain 2 days #10 TABLETS 01/11/22 [Rx Last Taken Unknown] Allergy/AdvReac Type Severity Reaction Status Date / Time latex AdvReac Other Verified 01/11/22 15:54 Social History Smoking Status: Never smoker ROS ROS ED Review of Systems ROS Unobtainable: other Constitutional Constitutional ED: Reports lethargy; Denies chills, fever(s), sweats or weight loss Eyes Eyes: Denies blurry vision, change in vision or diplopia ENT ENT ED: Denies rhinorrhea or sore throat Cardiovascular Cardiovascular: Reports chest pain and racing heartbeat; Denies orthopnea Respiratory/Chest Respiratory/Chest: Reports dyspnea and dyspnea on exertion; Denies cough, orthopnea or sputum Gastrointestinal Gastrointestinal: Denies abdominal pain, diarrhea, nausea or vomiting Genitourinary Genitourinary ED: Denies dysuria, hematuria or urinary frequency Musculoskeletal Musculoskeletal: Reports back pain; Denies arthralgias, myalgias or neck pain Integumentary Denies abscess, Abrasions or rash Neurologic Neurologic: Denies headache(s) or weakness Psychiatric Psychiatric: Denies anxiety, depression or suicidal thoughts Endocrine Endocrinology: Denies polydipsia, polyphagia or polyuria Hematologic/Lymphatic Hematologic/Lymphatic: Denies easy bleeding, easy bruising or lymphadenopathy Allergic/Immunologic Allergic/Immunologic ED: Denies mouth swelling, tongue swelling or urticaria EXAM Physical Exam Const Vital Signs: 01/11/22 15:52 Temperature 98.5 F Temperature Source Temporal Pulse Rate 100 Respiratory Rate 15 Blood Pressure 112/77 Blood Pressure Mean 88 Pulse Ox 97 Oxygen Delivery Method Room Air Positive well nourished and well developed General Appearance ED: well developed and NAD HEENT Reports TM's clear and moist mucous membranes normocephalic and atraumatic; Negative for trauma or tenderness Tympanic Membrane ED: Yes TM's clear Eyes PERRL and EOMs intact bilaterally General Eye ED: Negative for pale conjunctiva or scleral icterus Neck no lymphadenopathy, supple and no JVD General: Negative for tenderness Chest Wall inspection of chest normal and palpation of chest normal Chest: Negative for tenderness Resp normal respiratory effort and clear to auscultation bilaterally Effort and Inspection: Negative for respiratory distress or pain with movement Auscultation: Negative for rhonchi, wheezes or diminished lung sounds Cardio regular rate, regular rhythm, S1 normal heart sound, S2 normal heart sound and no murmurs Peripheral Pulses: pulses 2+ throughout GI normal to inspection, nondistended, normoactive bowel sounds, soft to palpation, non-tender, non-distended and no masses Back/Spine no CVA tenderness Back/Spine Narrative: Famished of her back reveals no ecchymosis or bruising. There is no erythema or warmth. She does have diffuse tenderness over the lumbar spine. Negative straight leg raises. Deep tendon reflexes are plus 2 out of 4 bilaterally at the patella and Achilles. Patient has normal 5 extension. Patient has no tenderness over the lumbar paraspinal musculature. Extremity normal to inspection General Extremety ED: Negative for edema General Extremity: Negative for edema Neuro oriented x3, CN's II-XII intact bilaterally, no sensory deficits noted and gait normal Sensorium / Orientation: awake, alert, oriented to person, oriented to place and oriented to time Motor Exam: strength 5/5 throughout and strength abnormal Psych mental status grossly normal Skin no rashes or lesions noted and no wounds MDM MDM MDM Narrative Medical decision making narrative: BackPatient pain with no red flag symptoms of cauda equina. Patient is already had x-rays of her back which were unremarkable therefore I do not believe any further imaging is indicated. I did check a urinalysis which was unremarkable. This point patient will be given a prescription for a few [place] for pain. She is advised to follow-up with her primary care physician in 5 to 7 days. She is advised to return if worsening pain, weakness extremities, change in bowel or bladder function, or condition should worsen anyway. Lab Data Attestation: I reviewed the patient's lab results. Labs: Laboratory Results - last 24 hr 01/11/22 16:25 Urine Color Yellow Urine Clarity Sl. Cloudy Urine pH 5.0 Ur Specific Fraser 1.025 Urine Protein 30 H Urine Glucose (UA) Normal Urine Ketones 5 H Urine Occult Blood Negative Urine Nitrite Negative Urine Bilirubin Negative Urine Urobilinogen Normal Ur Leukocyte Esterase 100 H Urine RBC 0-5 SEEN Urine WBC 0-5 SEEN Ur Squamous Epith Cells 0-5 SEEN Urine Bacteria 1+ Urine Mucus 1+ Discharge Plan Triage Chief Complaint: Back ED Provider: Janis Quinn Dx/Rx/DC Orders Clinical Impression: Back pain Instructions: ED Back Sprain/Strain Prescriptions: New hydrocodone-acetaminophen [hydrocodone-acetaminophen] 1 TABLET tablet 1 tab PO Q4H PRN PRN (Reason: Pain) 2 Days Qty: 10 0RF No Action Nexplanon 68 mg Implant 68 mg SUBDERMAL DAILY naproxen [Naprosyn] 500 mg tablet 500 mg PO BID PRN (Reason: pain) Qty: 20 0RF Primary Care Provider: Juan Dela Cruz Referrals: Juan Dela Cruz MD [Primary Care Provider] - 5-7 Days Disposition Disposition: Home, Self Care
[2022-01-11 16:50] LABS: Color, Urine Yellow (Yellow); Glucose, Dipstick Normal (Normal); Ketone-Dipstick 5 mg/dl (Negative); Leukocyte Esterase-Dipstick 100 /ul (Negative); Nitrite-Dipstick Negative (Negative); Occult Blood-Urine Negative /ul (Negative); Protein-Dipstick 30 mg/dl (Negative); Specific Gravity, Urine 1.025 (1.002-1.030); Urine Bilirubin Dipstick Negative (Negative); Urine Clarity Sl. Cloudy (Clear); Urine Urobilinogen Normal (Normal)
[2022-01-11 17:01] LABS: Bacteria 1+ /hpf (None Seen); Mucous, Urine 1+ /hpf (<or=2+); Red Blood Cells-Urine 0-5 SEEN /hpf (0-5); Squamous Epithelial Cells - UA 0-5 SEEN /hpf (5-10); White Blood Cells 0-5 SEEN /hpf (0-5)
== END 2022-01-11 18:07 | disposition home or self-care (01) ==
PROVIDERS: Emergency Provider Emergency Medicine; PCP Family Medicine; Visit Provider Emergency Medicine
DX: M54.9 Dorsalgia, unspecified (principal); R19.7 Diarrhea, unspecified; F41.9 Anxiety disorder, unspecified; F32.A Depression, unspecified; Z79.899 Other long term (current) drug therapy; X50.1XXA Overexertion from prolonged static or awkward postures, initial encounter
CPT/HCPCS: 81001; 99282

== ENCOUNTER 2022-01-20 20:08 | Emergency (ER) | payer MEDICAID, SELFPAY ==
[2022-01-20 20:09] VITALS: BP 127/97; PULSE 115; RESP 16; TEMP 36.1; O2SAT 97; BMI 26.5
--- NOTE | 2022-01-20 20:50 | EKG12_ITS ---
Test Reason : mental health Blood Pressure : / mmHG Vent. Rate : 097 BPM Atrial Rate : 097 BPM P-R Int : 138 ms QRS Dur : 074 ms QT Int : 360 ms P-R-T Axes : 035 048 043 degrees QTc Int : 457 ms Normal sinus rhythm Normal ECG Confirmed by ALICIA AMAYA, ESCOBAR ([id number]), news editor ALLI ANDREWS ([id number]) on 01/22/2022 2:03:41 PM Referred By: Confirmed By:ESCOBAR VARGAS MD
[2022-01-20 21:09] VITALS: RESP 18; O2SAT 97
--- NOTE | 2022-01-20 21:18 | EDS_ITS ---
HPI History of Present Illness Chief Complaint: Mental Health Informant: patient Narrative Narrative: 22-year-old female history of depression PTSD and bipolar disorder states that she is depressed and feels like a bad mother. She gave to a girl in June named Winter. Patient has been hospitalized in the past. She states that she was seen in the counseling center but her case was dropped because she missed an appointment. She states that she has been talking to other people about a different counseling area but has not called them. She is not currently on any psychiatric medications. She states that she is sacrificing her mental health for her child sake. [facility] Medical History Anxiety Depression Psychiatric disorder Trauma Home Medications etonogestrel 68 mg subdermal implant (Nexplanon) 68 mg subdermal DAILY 09/04/21 [History Last Taken Unknown] naproxen 500 mg tablet (Naprosyn) 500 mg PO BID PRN pain #20 tabs 12/30/21 [Rx Last Taken Unknown] hydrocodone-acetaminophen 5-325mg 5mg-325mg 1 tab PO Q4H PRN PRN Pain 2 days #10 TABLETS 01/11/22 [Rx Last Taken Unknown] Allergy/AdvReac Type Severity Reaction Status Date / Time latex AdvReac Other Verified 01/20/22 20:15 Social History (Updated 01/20/22 @ 21:[address] Mumtaz Cote DO) Smoking Status: Never smoker substance use type: does not use ROS ROS ED Constitutional Constitutional ED: Denies chills or weight loss Eyes Eyes: Denies change in vision or diplopia ENT ENT ED: Denies ear pain, rhinorrhea or sore throat Cardiovascular Cardiovascular: Denies chest pain, orthopnea, palpitations or racing heartbeat Respiratory/Chest Respiratory/Chest: Denies cough, dyspnea or orthopnea Gastrointestinal Gastrointestinal: Denies abdominal pain, diarrhea, nausea or vomiting Genitourinary Genitourinary ED: Denies dysuria, hematuria or urinary frequency Musculoskeletal Musculoskeletal: Denies arthralgias or myalgias Integumentary Denies abscess or rash Neurologic Neurologic: Denies headache(s) or weakness Psychiatric Psychiatric: Reports anxiety, depression, suicidal ideation and suicidal thoughts Endocrine Endocrinology: Denies polydipsia, polyphagia or polyuria Allergic/Immunologic Allergic/Immunologic ED: Denies mouth swelling, tongue swelling or urticaria EXAM Physical Exam Const Vital Signs: 01/20/22 20:09 01/20/22 21:09 Temperature 97.0 F L Temperature Source Temporal Pulse Rate 115 H Respiratory Rate 16 18 Blood Pressure 127/97 H Blood Pressure Mean 107 Pulse Ox 97 97 Oxygen Delivery Method Room Air Positive well nourished, well developed and obese General Appearance ED: well developed Nutritional Appearance: obese HEENT Reports normocephalic, head/scalp atraumatic and moist mucous membranes Eyes PERRL and EOMs intact bilaterally Neck no lymphadenopathy, supple and no JVD Resp normal respiratory effort and clear to auscultation bilaterally Cardio regular rate, regular rhythm and no murmurs GI normal to inspection, nondistended, normoactive bowel sounds and non-tender Palpation: soft Back/Spine no CVA tenderness and normal ROM Extremity normal to inspection General Extremety ED: Negative for edema General Extremity: Negative for edema Neuro oriented x3 and CN's II-XII intact bilaterally Sensorium / Orientation: alert Motor Exam: strength 5/5 throughout Psych Psych Narrative: The patient appears depressed. She states that she has entertained suicide but states that she does not want to harm her baby. She makes loose associations and claims and then backtracks. She places the blame for not being on medications or seeing a counselor as to other peoples faults even though she has not made any significant attempt to follow through. Mood & Affect: depressed and tearful Skin no rashes or lesions noted and no wounds MDM MDM MDM Narrative Medical decision making narrative: CBC CMP within normal limits. Toxicology work-up is negative. She is COVID- negative. Patient is medically cleared for crisis evaluation. Disposition will be made pending their evaluation Lab Data Attestation: I reviewed the patient's lab results. Labs: Laboratory Results - last 24 hr 01/20/22 01/20/22 01/20/22 20:55 20:55 20:55 WBC RBC Hgb Hct MCV MCH MCHC RDW Std Deviation RDW Coeff of [place] Plt Count MPV Immature Gran % (Auto) Neut % (Auto) Lymph % (Auto) Placer % (Auto) Eos % (Auto) Baso % (Auto) Absolute Neuts (auto) Absolute Lymphs (auto) Nucleated RBC % Sodium 143 Potassium 3.7 Chloride 112 H Carbon Dioxide 26.0 Anion Gap 5 BUN 11 Creatinine 0.86 Estim Creat Clear Calc 85.60 Est GFR (MDRD) Af Amer 106 Est GFR (MDRD) Non-Af 88 BUN/Creatinine Ratio 12.7 Glucose 80 Calcium 9.3 Total Bilirubin 0.20 AST 16 ALT 29 Alkaline Phosphatase 131 H Total Protein 7.2 Albumin 3.6 Globulin 3.6 Albumin/Globulin Ratio 1.0 Serum , Qual NEGATIVE Urine Opiates Screen Cancelled Urine Methadone Screen Cancelled Ur Barbiturates Screen Cancelled Ur Phencyclidine Scrn Cancelled Ur Amphetamines Screen Cancelled MDMA (Ecstasy) Screen Cancelled U Benzodiazepines Scrn Cancelled Urine Cocaine Screen Cancelled U Cannabinoids Screen Cancelled Ur Drug Screen Comment Cancelled 01/20/22 01/20/22 21:19 21:19 WBC 7.2 RBC 4.94 Hgb 12.1 Hct 41.4 MCV 83.8 MCH 24.5 L MCHC 29.2 L RDW Std Deviation 50.3 H RDW Coeff of [place] 16.6 H Plt Count 388 MPV 9.6 Immature Gran % (Auto) 0.400 Neut % (Auto) 64.9 Lymph % (Auto) 23.3 Placer % (Auto) 9.8 Eos % (Auto) 1.0 Baso % (Auto) 0.6 Absolute Neuts (auto) 4.7 Absolute Lymphs (auto) 1.67 Nucleated RBC % 0 Sodium Potassium Chloride Carbon Dioxide Anion Gap BUN Creatinine Estim Creat Clear Calc Est GFR (MDRD) Af Amer Est GFR (MDRD) Non-Af BUN/Creatinine Ratio Glucose Calcium Total Bilirubin AST ALT Alkaline Phosphatase Total Protein Albumin Globulin Albumin/Globulin Ratio Serum , Qual Urine Opiates Screen NEGATIVE Urine Methadone Screen NEGATIVE Ur Barbiturates Screen NEGATIVE Ur Phencyclidine Scrn NEGATIVE Ur Amphetamines Screen NEGATIVE MDMA (Ecstasy) Screen NEGATIVE U Benzodiazepines Scrn NEGATIVE Urine Cocaine Screen NEGATIVE U Cannabinoids Screen NEGATIVE Ur Drug Screen Comment EKG Initial EKG: Attestation: I personally reviewed and interpreted this EKG as follows: Comments: Normal sinus rhythm ventricular rate of 97 bpm Discharge Plan Triage Chief Complaint: Mental Health Other Complaint: Suicidal ED Provider: Mumtaz Cote Dx/Rx/DC Orders Clinical Impression: Depression, Bipolar disorder Prescriptions: No Action Nexplanon 68 mg Implant 68 mg SUBDERMAL DAILY naproxen [Naprosyn] 500 mg tablet 500 mg PO BID PRN (Reason: pain) Qty: 20 0RF hydrocodone-acetaminophen [hydrocodone-acetaminophen] 1 TABLET tablet 1 tab PO Q4H PRN PRN (Reason: Pain) 2 Days Qty: 10 0RF Primary Care Provider: Juan Dela Cruz Referrals: Juan Dela Cruz MD [Primary Care Provider] -
[2022-01-20 21:28] LABS: Absolute Lymphocyte Count 1.67 X10^3/uL (0.83-4.51); Absolute Neutrophil Count 4.7 X10^3/uL (2.0-7.7); Basophil# 0.04 X10^3/uL; Basophil% 0.6 % (0-1); Eosinophil# 0.07 X10^3/uL; Hematocrit 41.4 % (37-47); Hemoglobin 12.1 g/dL (12.0-15.0); Lymphocyte # 1.67 X10^3/ul (0.83-4.51); Lymphocyte % 23.3 % (19-41); Mean Corp Hgb Conc 29.2 g/dL (32-36); Mean Corpuscular Hgb 24.5 pg (27.0-32.0); Mean Corpuscular Volume 83.8 fL (81-99); Mean Platelet Vol. 9.6 fl (6.2-12.0); Monocyte% 9.8 % (0-10); NRBC Flagged by Analyzer 0 % (0-5); Neutrophil # 4.65 X10^3/uL (2.7-7.7); Neutrophil % 64.9 % (47-70); Platelet Count 388 K/mm3 (150-450); RBC Distribution Width CV 16.6 % (11.6-14.6); RBC Distribution Width SD 50.3 fl (35.1-43.9); Red Blood Count 4.94 M/mm3 (4.2-5.4); White Blood Count 7.2 K/mm3 (4.4-11.0)
[2022-01-20 21:42] LABS: Internal QC Validated? YES +Cl - CLEAR BKGD; Pregnancy, Serum, hCG Quali. NEGATIVE Negative
--- NOTE | 2022-01-20 21:42 | CM.ED ---
MAURA called Shoshana at Crisis and updated her regarding patient and crisis needing to do the assessment. Stefany WILDE
[2022-01-20 21:48] LABS: AST(SGOT) 16 U/L (15-37); Alanine Aminotransfer ALT/SGPT 29 U/L (13-56); Albumin, Serum 3.6 g/dL (3.2-5.0); Alkaline Phosphatase 131 U/L (45-117); Anion Gap 5 (5-15); BUN 11 mg/dL (7-18); BUN/Creat Ratio 12.7 RATIO (10-20); Calcium,Total 9.3 mg/dL (8.5-10.1); Chloride 112 mmol/L (98-107); Creatinine, Serum 0.86 mg/dL (0.55-1.02); EST Glomerular Filtration Rate 88 mL/min (>60); Est Glom Filt Rate - Afr Amer 106 mL/min (>60); Globulin 3.6 g/dL (2.2-4.2); Glucose 80 mg/dL (74-106); Potassium 3.7 mmol/L (3.5-5.1); Protein, Total 7.2 g/dL (6.4-8.2); Sodium Level 143 mmol/L (136-145)
[2022-01-20 21:52] LABS: Amphetamine Urine VISTA NEGATIVE (<1000 ng/mL); Barbiturate Urine VISTA NEGATIVE (< 200 ng/mL); Benzodiazepine Urine VISTA NEGATIVE (< 200 ng/mL); Cocaine Urine VISTA NEGATIVE (< 300 ng/mL); Ecstacy Urine VISTA NEGATIVE (< 500 ng/mL); Methadone Urine VISTA NEGATIVE (< 300 ng/mL); PCP Urine VISTA NEGATIVE (< 25 ng/mL); THC Urine VISTA NEGATIVE (< 50 ng/mL); Vista UDS pH Range 5
[2022-01-20 22:00] VITALS: RESP 16
[2022-01-20 22:05] LABS: Alcohol, Blood (Medical)-Serum < 3.0 mg/dL
[2022-01-20 23:00] VITALS: RESP 18
--- NOTE | 2022-01-20 23:52 | ED.RN ---
PTS SIGNIFICANT OTHER BROUGHT IN 3 BAGS OF PTS PERSONAL BELONGINGS. BELONGINGS ARE PUT IN TOTE
[2022-01-21] VITALS: RESP 18
[2022-01-21 01:00] VITALS: RESP 18
--- NOTE | 2022-01-21 01:50 | NURSING ---
[facility] REFERRED TO [facility]
[2022-01-21 04:00] VITALS: BP 102/59; PULSE 96; RESP 15; TEMP 36.6; O2SAT 97
[2022-01-21 05:00] VITALS: RESP 15
[2022-01-21 07:36] VITALS: BP 124/81; PULSE 89; RESP 16; TEMP 36.4; O2SAT 98
== END 2022-01-21 08:55 ==
PROVIDERS: Emergency Provider Emergency Medicine; PCP Family Medicine; Visit Provider Emergency Medicine
DX: F31.9 Bipolar disorder, unspecified (principal); F43.10 Post-traumatic stress disorder, unspecified; F41.9 Anxiety disorder, unspecified; Z97.5 Presence of (intrauterine) contraceptive device; E66.9 Obesity, unspecified; Z68.26 Body mass index [BMI] 26.0-26.9, adult
CPT/HCPCS: 80053; 80307; 82077; 84703; 85025; 87811; 93005; 99285

== ENCOUNTER 2022-05-15 12:42 | Emergency (ER) | payer MEDICAID, SELFPAY ==
[2022-05-15 12:43] VITALS: BP 113/69; PULSE 77; RESP 18; TEMP 37.4; O2SAT 96; BMI 27.4
== END 2022-05-15 14:05 | disposition left against medical advice (07) ==
LOC: ED 14:10
PROVIDERS: PCP Family Medicine
DX: Z53.21 Procedure and treatment not carried out due to patient leaving prior to being seen by health care provider (principal)